=== PATIENT | male | born 1960 | race African-American/Black ===

== ENCOUNTER 2020-07-15 13:02 | Outpatient (REF) | payer OTHER, SELFPAY ==
[2020-07-15 13:50] LABS: MANUAL DIFF FLAG NO
[2020-07-15 13:53] LABS: Basophils Percent Auto 1.1 % (0-2); Eosinophils Absolute Auto 0.7 X10*3/uL (0.0-0.4); Eosinophils Percent Auto 18.9 % (0-4); Hematocrit 44.4 % (42-52); Hemoglobin 13.7 g/dl (14.0-18.0); Imm Gran Abs Auto 0.01 X10*3/uL (0.00-0.03); Imm Gran Pct Auto 0.3 % (0.0-0.4); Lymphocytes Absolute Auto 1.3 X10*3/uL (1.2-4.9); Lymphocytes Percent Auto 36.2 % (20-40); Mean Corpuscular HGB Conc 30.9 g/dl (31.0-36.0); Mean Corpuscular Hemoglobin 25.8 pg (27.0-33.0); Mean Corpuscular Volume 83.6 fL (80-98); Mean Platelet Volume 10.5 fL (9.4-12.4); Monocytes Absolute Auto 0.3 X10*3/uL (0.1-1.2); Monocytes Percent Auto 6.8 % (2-11); Neutrophils Absolute Auto 1.4 X10*3/uL (2.0-8.3); Neutrophils Percent Auto 36.7 % (45-73); Platelet Count 250 X10*3/uL (160-400); Red Blood Count 5.31 X10*6/uL (4.60-5.80); White Blood Count 3.7 X10*3/uL (4.8-10.8)
[2020-07-15 14:16] LABS: Alanine Aminotransferase 14 U/L (0-40); Albumin Level 4.5 g/dL (3.5-5.0); Alkaline Phosphatase 108 U/L (39-117); Anion Gap 13 (12-20); Aspartate Amino Transferase 19 U/L (5-37); Bilirubin Total 0.6 mg/dL (0.0-1.0); Blood Urea Nitrogen 8 mg/dL (9-16); Calcium 9.3 mg/dL (8.4-10.2); Carbon Dioxide 28 mmol/L (22-29); Chloride 106 mmol/L (96-108); Cholesterol 188 mg/dL; Estimated Glomerular Filt Rate > 60; Glucose Fasting 92 mg/dL (60-99); HDL Cholesterol 52 mg/dL; Iron 123 mcg/dL (45-160); LDL Cholesterol Calculated 122 mg/dl; Percent Iron Saturation 34 % (15-50); Potassium 4.3 mmol/L (3.3-5.1); Sodium 143 mmol/L (135-145); Total Iron Binding Capacity 360 mcg/dL (228-428); Total Protein 7.5 g/dL (6.5-8.0); Triglycerides 73 mg/dL; Unsaturated Iron Binding 237 ug/dL
[2020-07-15 14:39] LABS: PSA,Total (Free>4and<10) 4.03 ng/mL (0.00-4.00); Vitamin D 25-OH Total 11.2 ng/mL (>30)
[2020-07-15 14:54] LABS: Ferritin 114 ng/mL (20-250)
[2020-07-16 11:32] LABS: Free Prostate Spec Ag 0.5 ng/mL; Percent Free Prostate Spec Ag 15 % (calc) (>25); Prostate Specific Ag Total 3.3 ng/mL (< OR = 4.0)
== END 2020-07-15 13:03 | disposition home or self-care (01) ==
LOC: HO.HMGCLDS 13:02
PROVIDERS: PCP Internal Medicine; Visit Provider Internal Medicine
DX: Z00.01 Encounter for general adult medical examination with abnormal findings (principal); Z12.5 Encounter for screening for malignant neoplasm of prostate; D64.9 Anemia, unspecified; E55.9 Vitamin D deficiency, unspecified; E78.5 Hyperlipidemia, unspecified; I10 Essential (primary) hypertension
CPT/HCPCS: 36415; 80053; 80061; 82306; 82728; 83540; 84153; 84154; 85025

== ENCOUNTER → 2020-08-12 14:02 | Outpatient (BNVA) | payer OTHER, SELFPAY | PROVIDERS: PCP Internal Medicine; Visit Provider Urology ==

== ENCOUNTER 2021-03-04 12:19 | Outpatient (REF) | payer OTHER, SELFPAY ==
[2021-03-04 14:06] LABS: MANUAL DIFF FLAG NO
[2021-03-04 14:10] LABS: Basophils Percent Auto 0.9 % (0-2); Eosinophils Absolute Auto 0.7 X10*3/uL (0.0-0.4); Hematocrit 41.6 % (42.0-52.0); Hemoglobin 13.1 g/dl (14.0-18.0); Lymphocytes Absolute Auto 1.2 X10*3/uL (1.2-4.9); Lymphocytes Percent Auto 34.6 % (20-40); Mean Corpuscular HGB Conc 31.5 g/dl (31.0-36.0); Mean Corpuscular Hemoglobin 26.1 pg (27.0-33.0); Mean Corpuscular Volume 82.9 fL (80.0-98.0); Mean Platelet Volume 10.9 fL (9.4-12.4); Monocytes Absolute Auto 0.3 X10*3/uL (0.1-1.2); Monocytes Percent Auto 8.1 % (2-11); Neutrophils Absolute Auto 1.3 x10*3/uL (2.0-8.3); Neutrophils Percent Auto 37.4 % (45-73); Platelet Count 246 X10*3/uL (160-400); Red Blood Count 5.02 X10*6/uL (4.60-5.80); Red Cell Distribution Width 13.3 % (11.0-16.0); White Blood Count 3.5 X10*3/uL (4.8-10.8)
[2021-03-04 14:37] LABS: Alanine Aminotransferase 16 U/L (0-40); Anion Gap 10 (12-20); Aspartate Amino Transferase 21 U/L (5-37); Blood Urea Nitrogen 11 mg/dL (9-16); Calcium 9.5 mg/dL (8.4-10.2); Carbon Dioxide 30 mmol/L (22-29); Chloride 106 mmol/L (96-108); Cholesterol 207 mg/dL; Estimated Glomerular Filt Rate > 60; Glucose Fasting 88 mg/dL (60-99); HDL Cholesterol 45 mg/dL; Iron 155 mcg/dL (45-160); LDL Cholesterol Calculated 144 mg/dl; Percent Iron Saturation 45 % (15-50); Potassium 4.1 mmol/L (3.3-5.1); Sodium 142 mmol/L (135-145); Total Iron Binding Capacity 342 mcg/dL (228-428); Triglycerides 92 mg/dL; Unsaturated Iron Binding 187 ug/dL
[2021-03-04 14:58] LABS: PSA,Total (Free>4and<10) 3.24 ng/mL (0.00-4.00)
== END 2021-03-04 12:20 | disposition home or self-care (01) ==
LOC: HO.HMGCLDS 12:19
PROVIDERS: Absent Provider Urology; PCP Internal Medicine; Visit Provider Internal Medicine
DX: Z12.5 Encounter for screening for malignant neoplasm of prostate (principal); N13.8 Other obstructive and reflux uropathy; N40.1 Benign prostatic hyperplasia with lower urinary tract symptoms; D64.9 Anemia, unspecified; E55.9 Vitamin D deficiency, unspecified; E78.5 Hyperlipidemia, unspecified; I10 Essential (primary) hypertension
CPT/HCPCS: 36415; 80048; 80061; 83540; 84153; 84450; 84460; 85025

== ENCOUNTER 2022-05-12 10:40 | Outpatient (REF) | payer OTHER, SELFPAY ==
[2022-05-12 14:03] LABS: Eosinophils Absolute Auto 0.2 X10*3/uL (0.0-0.4); Eosinophils Percent Auto 8.1 % (0-4); Hematocrit 45.3 % (42.0-52.0); Hemoglobin 14.6 g/dl (14.0-18.0); Imm Gran Abs Auto 0.01 X10*3/uL (0.00-0.03); Imm Gran Pct Auto 0.3 % (0.0-0.4); Lymphocytes Absolute Auto 1.6 X10*3/uL (1.2-4.9); Lymphocytes Percent Auto 52.7 % (20-40); MANUAL DIFF FLAG SCAN; Mean Corpuscular HGB Conc 32.2 g/dl (31.0-36.0); Mean Corpuscular Hemoglobin 26.6 pg (27.0-33.0); Mean Corpuscular Volume 82.7 fL (80.0-98.0); Mean Platelet Volume 11.5 fL (9.4-12.4); Monocytes Absolute Auto 0.2 X10*3/uL (0.1-1.2); Monocytes Percent Auto 7.7 % (2-11); Neutrophils Absolute Auto 0.9 x10*3/uL (2.0-8.3); Neutrophils Percent Auto 30.2 % (45-73); Platelet Count 233 X10*3/uL (160-400); Red Blood Count 5.48 X10*6/uL (4.60-5.80); Red Cell Distribution Width 12.6 % (11.0-16.0); SCAN SMEAR FLAG 1
[2022-05-12 14:30] LABS: SLIDE REVIEW VERIFIED
[2022-05-12 14:39] LABS: Cholesterol 211 mg/dL; Glucose Fasting 87 mg/dL (60-99); HDL Cholesterol 48 mg/dL; LDL Cholesterol Calculated 149 mg/dl; Triglycerides 72 mg/dL
[2022-05-12 14:46] LABS: PSA,Total (Free>4and<10) 4.36 ng/mL (0.00-4.00); Vitamin D 25-OH Total 26.2 ng/mL (>30)
[2022-05-17 11:03] LABS: Free Prostate Spec Ag 0.6 ng/mL; Percent Free Prostate Spec Ag 15 % (calc) (>25); Prostate Specific Ag Total 3.9 ng/mL (< OR = 4.0)
== END 2022-05-12 10:41 | disposition home or self-care (01) ==
LOC: HO.HMGCLDS 10:40
PROVIDERS: PCP Internal Medicine; Visit Provider Internal Medicine
DX: Z00.01 Encounter for general adult medical examination with abnormal findings (principal); D64.9 Anemia, unspecified; E55.9 Vitamin D deficiency, unspecified; E78.5 Hyperlipidemia, unspecified; H40.9 Unspecified glaucoma; Z01.84 Encounter for antibody response examination
CPT/HCPCS: 36415; 80061; 82306; 82947; 84153; 84154; 85025; 86787

== ENCOUNTER 2022-11-09 11:53 | Outpatient (REF) | payer OTHER, SELFPAY ==
[2022-11-09 14:19] LABS: Alanine Aminotransferase 8 U/L (0-40); Aspartate Amino Transferase 13 U/L (5-37); Cholesterol 221 mg/dL; HDL Cholesterol 48 mg/dL; LDL Cholesterol Calculated 153 mg/dl; Triglycerides 100 mg/dL
[2022-11-09 14:35] LABS: Vitamin D 25-OH Total 40.3 ng/mL (>30)
== END 2022-11-09 11:54 | disposition home or self-care (01) ==
LOC: HO.HMGCLDS 11:53
PROVIDERS: PCP Internal Medicine; Visit Provider Internal Medicine
DX: I10 Essential (primary) hypertension (principal); E78.5 Hyperlipidemia, unspecified; E55.9 Vitamin D deficiency, unspecified
CPT/HCPCS: 36415; 80061; 82306; 84450; 84460

== ENCOUNTER 2022-11-10 10:04 | Outpatient (AMB) | payer OTHER, SELFPAY ==
--- NOTE | 2022-11-10 10:21 | A.OFFPC_ITS ---
Vital Signs 11/10/22 10:22 Height 5 ft 5 in Weight 135 lb BMI 22.5 BP 128/80 Blood Pressure Location Lt brachial Position Sitting Pulse 52 Pulse Source Pulse Oximeter Pulse Oximetry (%) 98 Oxygen Delivery Method Room Air Intake Visit Reasons: 6 Month follow up after labs Intake Note: Pt is here today for his 6 months f/u labs Allergies No Known Allergies [No Known Allergies*] Allergy (Verified 11/10/22 10:25) Medication List - Last Reconciled 11/10/22 by Solange Staton MD amlodipine 10 mg PO DAILY cholecalciferol (vitamin D3) 1,250 mcg PO QWEEK 3 months latanoprost 0.005% 1 drp ophthalmic (eye) DAILY timolol maleate 0.5% 1 drp ophthalmic (eye) BID Tobacco use date assessed: 11/10/22 Dental Screening Dental Screen Date: 11/10/22 Did you have a dental visit in the last 12 months?: Yes Did you have a dental problem in the last 6 months where you did not have access to dental care?: No Was dental information given to patient?: Patient has dentist HPI 6 Month follow up after labs HPI Details 63-year-old male with history of anemia, resolved, has glaucoma, hypertension , dyslipidemia, here today for six-month follow-up has, no complaints at present time. He had recent fasting labs showed higher LDL cholesterol as compared to last check, Laboratory Tests 05/12/22 11/09/22 10:46 11:57 WBC 3.0 L Hgb 14.6 Hct 45.3 MCV 82.7 MCH 26.6 L RDW 12.6 Plt Count 233 AST 13 ALT 8 Triglycerides 100 Cholesterol 221 LDL Cholesterol, C alc 153 HDL Cholesterol 48 25-OH Vitamin D To shannan 40.3 PFSH Medical History (Updated 11/10/22 @ 10:48 by Solange Staton MD) Anemia Dyslipidemia Elevated PSA Essential hypertension Glaucoma History of hemorrhoids Rash and nonspecific skin eruption Vitamin D deficiency Surgical History (Updated 11/10/22 @ 10:31 by Solange Staton MD) History of colonoscopy History of hemorrhoidectomy Family History Father No problems noted. Mother Unknown family medical history Brother No problems noted. Sister No problems noted. Sister No problems noted. Son No problems noted. Son No problems noted. Daughter No problems noted. Daughter No problems noted. Daughter No problems noted. Social History Housing: House Alcohol intake: current Patient Tobacco Use Status: Never used Tobacco e-Cigarette/Vaping Use: Never Used service: No Current occupational status: employed Cognitive needs: No Hearing needs: No Vision needs: No Questionnaire Thrive Questionnaire Date Thrive assessed: 05/12/22 DONITA-7 AMB Questionnaire DONITA-7 Date DONITA - 7 assessed: 05/12/22 Source: Developed by Drs. Hans Anderson, Yudith Maurice, Lamin Young and colleagues, with an educational jaelyn from [employer]. Review of Systems Const Denies body aches, Denies fatigue, Denies fever(s), Denies headache(s) and Denies weakness Eyes Details: Sees Dr. Gilbert at [facility] for treatment of glaucoma ENT Denies dizziness, Denies headache(s) and Denies nasal congestion Card Denies chest pain, Denies lightheadedness, Denies palpitations and Denies dyspnea Resp Denies chest congestion, Denies cough, Denies dyspnea and Denies wheezing GI Denies abdominal pain, Denies change in bowel habits and Denies heartburn Denies dysuria, Denies urinary frequency and Denies urinary urgency Musc Reports no additional complaints Skin/Breast Denies lesions and Denies rash Neuro Denies dizziness, Denies headache(s) and Denies weakness Endo Denies fatigue and Denies palpitations Kodak/Lymph Denies easy bruising Aller/Immun Denies wheezing Physical exam (Primary Care) BMI result Body Mass Index 22.5 Tobacco/Smoking Status: Tobacco use Status Tobacco use date assessed 05/12/22 11/10/22 10:21 Patient Tobacco Use Status Never used Tobacco 11/10/22 10:21 e-Cigarette/Vaping Use Never Used 11/10/22 10:21 Thrive Assessment: Date of Thrive Assessment Date Thrive assessed 05/12/22 11/10/22 10:21 Const Other: Alert oriented x3, no acute distress ambulatory normal gait Orientation/consciousness: patient oriented x3 HENMT Head: Yes normocephalic, Yes scalp lesion (Slightly raised lesion on left front al area of scalp) and No scalp tenderness Face and sinus: Yes face symmetric Mouth: Normal oral and palatal mucosa present, oropharynx normal and moist mucous membranes Eyes General: appearance normal, both eyes and all related structures Neck Other: Supple, no lymphadenopathy, thyroid gland nonpalpable Chest Chest palpation & inspection: normal inspection of the chest Resp Effort & Inspection: normal respiratory effort and able to speak in complete sentences Auscultation: clear to auscultation bilaterally Cardio Other: S1-S2 present regular rate and rhythm GI Inspection: Yes normal to inspection Palpation (GI): Soft to palpation, nontender, no guarding and no masses Back/Spine/Pelvis Back: No back tenderness Skin Other: Raised round lesion on left forehead, fluctuant, nontender Neuro General: patient oriented x3, gait normal, moves all extremities, no focal motor deficits and CN's II-XI intact bilaterally Gait exam (Neuro): Normal gait present Extrem General: Yes normal to inspection, Yes full ROM, Yes no joint enlargement, Yes no pedal edema and Yes normal gait Right upper extremity: normal to inspection, full ROM and shoulder/upper arm Details: normal to inspection; no tenderness, no ecchymosis and no unusual warmth Assessment and Plan Assessment & Plan (1) Skin lesion of scalp: Code(s): L98.9 - Disorder of the skin and subcutaneous tissue, unspecified Plan: Ordered surgery consult (2) Upper arm pain: Code(s): M79.629 - Pain in unspecified upper arm Plan: Advised to massaged affected area with [id number] absorbent nj or Aspercreme. Did not any improvement with taking meloxicam (3) Essential hypertension: Code(s): I10 - Essential (primary) hypertension Plan: Blood pressure at goal of less than 130/80. Continue with amlodipine 10 mg daily. Reinforced importance of following a low sodium diet, getting regular exercise, and lowering stress levels. (4) Dyslipidemia: Code(s): E78.5 - Hyperlipidemia, unspecified Plan: Reviewed recent fasting lipid profile with patient with increasing triglycerides and LDL cholesterol levels . Advised to follow a low-cholesterol diet and get regular exercise, at least 30 minutes 3 to 4 times a week. Patient Education guide given for help with lower LDL cholesterol and triglycerides. Advised patient to make healthy food choices, eat more fruits, vegetables, whole grains, wild caught fish and low-fat dairy. Limit amount of meat and fried or fatty food products, as well as processed foods and fast foods. Will check lipids again on next physical exam Orders: Referrals General Surgery Referral L98.9 - Disorder of the skin and subcutaneous tissue, unspecified Coding Level of Care Code Est Pt Level 3 (50001) Diagnoses Skin lesion of scalp L98.9 Upper arm pain M79.629 Essential hypertension I10 Dyslipidemia E78.5
[2022-11-10 10:22] VITALS: BP 128/80; PULSE 52; O2SAT 98; BMI 22.5
== END 2022-11-10 11:28 | disposition home or self-care (01) ==
PROVIDERS: Visit Provider Internal Medicine
DX: L98.9 Disorder of the skin and subcutaneous tissue, unspecified (principal); M79.629 Pain in unspecified upper arm; I10 Essential (primary) hypertension; E78.5 Hyperlipidemia, unspecified
CPT/HCPCS: 99213

== ENCOUNTER 2023-01-10 10:46 | Outpatient (REF) | payer OTHER, SELFPAY ==
[2023-01-10 14:07] LABS: Anion Gap 15 (12-20); Blood Urea Nitrogen 11 mg/dL (9-16); Calcium 10.2 mg/dL (8.4-10.2); Carbon Dioxide 28 mmol/L (22-29); Chloride 103 mmol/L (96-108); Estimated Glomerular Filt Rate > 60; Glucose Random 96 mg/dL (60-115); Potassium 4.3 mmol/L (3.3-5.1); Sodium 142 mmol/L (135-145)
[2023-01-11 09:38] LABS: Free Prostate Spec Ag 0.8 ng/mL; Percent Free Prostate Spec Ag 19 % (calc) (>25); Prostate Specific Ag Total 4.3 ng/mL (< OR = 4.0)
== END 2023-01-10 10:47 | disposition home or self-care (01) ==
LOC: HO.HMGCLDS 10:46
PROVIDERS: PCP Internal Medicine; Visit Provider Nurse Practitioner Family
DX: I10 Essential (primary) hypertension (principal); R97.20 Elevated prostate specific antigen [PSA]
CPT/HCPCS: 36415; 80048; 84153; 84154

== ENCOUNTER 2023-01-19 11:39 | Outpatient (AMB) | payer OTHER, SELFPAY ==
--- NOTE | 2023-01-19 11:40 | MHC.OFFVIS ---
Intake Intake Visit Reasons: Elevated PSA- follow up Intake Note: Patient is present for follow up elevated psa/lab (psa 4.57) Urology Medications: none Blood Thinner: none Director [employer] Required: No Accompanied by: Self / Same As Patient Allergies No Known Allergies [No Known Allergies*] Allergy (Verified 01/19/23 20:49) Medication List - Last Reconciled 01/19/23 by SARWAT AlamoP- amlodipine 10 mg PO DAILY cholecalciferol (vitamin D3) 1,250 mcg PO QWEEK 3 months latanoprost 0.005% 1 drp ophthalmic (eye) DAILY timolol maleate 0.5% 1 drp ophthalmic (eye) BID HPI HPI Comments History of Present Illness Details Jani is a very pleasant male ([place]) patient of Dr. Staton. He has a past medical history elevated PSA, glaucoma, hypertension, hemorrhoids, dyslipidemia, vitamin-D deficiency, and anemia. He presents to the office today for follow-up of his elevated PSA. In discussion with the patient today reports to be doing and feeling well. He reports following up with Dr. Pedro approximately 2 years ago for an elevated PSA at which time recommendations were made for trial finasteride however patient reports to never have started this medication. In review of patient's chart it appears PSAs are as follows: 07/23--4.0, 07/23--3.3 % free 15%, 03/24--3.2, 05/27--4.4, 05/27--3.9 % free 15%, 01/24--4.6, 01/24--4.3 % free 19% Discussed at length potential causes for elevated PSA. Discussed PCP T risk calculator 70% chance that biopsy is negative for cancer, 18% chance of low-grade cancer, and 12% chance of high-grade prostate cancer. When asked patient denies any known family history of prostate cancer. He denies any bothersome urinary issues or concerns at this time. He denies urinary urgency, urinary frequency, incontinence, nocturia, hematuria, dysuria, foul smelling urine, changes to urinary stream, flank pain, fever, and or chills. He is happy with his current voiding parameters. Discussed obtaining retroperitoneal ultrasound for further assessment evaluation and redraw of PSA with no sex the night before, no caffeine morning of, and no heavy lifting 1-2 days prior. VEENA;smooth and no suspicious nodules palpated. [facility] Medical History (Updated 01/19/23 @ 12:05 by EDUARDO Alamo) Elevated PSA Glaucoma Rash and nonspecific skin eruption Essential hypertension History of hemorrhoids Dyslipidemia Vitamin D deficiency Anemia Surgical History History of colonoscopy History of hemorrhoidectomy Family History Father No problems noted. Mother Unknown family medical history Brother No problems noted. Sister No problems noted. Sister No problems noted. Son No problems noted. Son No problems noted. Daughter No problems noted. Daughter No problems noted. Daughter No problems noted. Social History Housing: House Alcohol intake: current Patient Tobacco Use Status: Never used Tobacco e-Cigarette/Vaping Use: Never Used service: No Current occupational status: employed Cognitive needs: No Hearing needs: No Vision needs: No Review of Systems Const Reports as per HPI Eyes Reports as per HPI ENT Reports no additional complaints Card Reports as per HPI Resp Reports as per HPI GI Reports no additional complaints Reports as per HPI Musc Reports no additional complaints and Denies muscle weakness Neuro Reports no additional complaints Psych Reports no additional complaints Endo Reports no additional complaints Physical Exam Const General: cooperative, healthy appearing, comfortable, no acute distress, well developed, alert and awake Orientation/consciousness: patient oriented x3 Limitations: no limitations HEENT Head: Yes normal to inspection, Yes normocephalic and Yes atraumatic Ears: hearing grossly normal bilaterally Eyes General: appearance normal, both eyes and all related structures Neck Neck: Yes normal visual inspection and Yes trachea midline Chest Chest palpation & inspection: normal inspection of the chest Resp Effort & Inspection: normal respiratory effort and able to speak in complete sentences Cardio Rate: regular rate GI Inspection: Yes normal to inspection General: Yes no CVA tenderness Back/Spine/Pelvis Back: no CVA tenderness Skin General skin exam: no rashes or lesions noted Neuro General: patient oriented x3 Extrem General: Yes normal to inspection Psych Appearance: grossly normal and well kempt Mental Status: mental status grossly normal Speech and movement: Normal speech and movement present and Clear speech present Affect: normal affect Attitude: cooperative Thought process: Normal thought process present Thought content: Normal thought content present Insight: Fair insight present (Psych) Judgement: Fair judgement present (Psych) Results AMB Urinalysis, Automated UA Leukoctes 15 Janae/uL Last Edit by Mariela Saleh on 01/19/23 11:52 UA Nitrite Negative Last Edit by Mariela Saleh on 01/19/23 11:52 UA Urobilinogen 0.2 mg/dL Last Edit by [employer] on 01/19/23 11:52 UA Protein 30 mg/dL Last Edit by [employer] on 01/19/23 11:52 UA pH 6.0 Last Edit by [employer] on 01/19/23 11:52 UA Blood 0 Stas/uL Last Edit by [employer] on 01/19/23 11:52 UA Specific [place] 1.015 Last Edit by [employer] on 01/19/23 11:52 UA Ketone Negative Last Edit by [employer] on 01/19/23 11:52 UA Bilirubin 1 mg/dL Last Edit by [employer] on 01/19/23 11:52 UA Glucose 0 mg/dL Last Edit by [employer] on 01/19/23 11:52 Results Reviewed Results Reviewed: Laboratory Last Values Urine pH (Auto) 6.0 01/19/23 11:45 Specific [place] (Auto) 1.015 01/19/23 11:45 Urine Protein (Auto) 30 mg/dL 01/19/23 11:45 Glucose (UA)(Auto) 0 mg/dL 01/19/23 11:45 Urine Ketones (Auto) Negative 01/19/23 11:45 Urine Blood (Auto) 0 Stas/uL 01/19/23 11:45 Urine Nitrite (Auto) Negative 01/19/23 11:45 Urine Bilirubin (Auto) 1 mg/dL 01/19/23 11:45 Urine Urobilinogen (Auto) 0.2 mg/dL 01/19/23 11:45 Leukocyte Esterase (Auto) 15 Janae/uL 01/19/23 11:45 Assessment & Plan Assessment & Plan (1) Elevated PSA: Comment: Followed by Dr. Pedro Code(s): R97.20 - Elevated prostate specific antigen [PSA] Plan In office urinalysis results reviewed with the patient today; as noted above. PSA results reviewed with the patient today as noted above. Patient denies any bothersome urinary issues or concerns at this time. Discussed redraw of PSA; with no sex the night before, no caffeine morning of, and no heavy lifting 1-2 days prior to lab draw. Discussed obtaining retroperitoneal ultrasound for further assessment evaluation. Discussed at length potential causes for elevated PSA. PC PT risk calculator reviewed with the patient today. Patient reports to be happy with current voiding parameters. VEENA performed; smooth and no suspicious nodules palpated. Follow-up in 4-6 weeks with labs and imaging to be completed prior; or sooner with any issues, concerns, and or questions. Orders: Orders PSA,Total (Free>4and<10) Today R97.20 - Elevated prostate specific antigen [PSA] AMB Urinalysis Automated Today Z13.9 - Encounter for screening, unspecified US retroperitoneal comp Today R39.9 - Unspecified symptoms and signs involving the genitourinary system Patient Instructions: The patient had an opportunity to ask questions regarding the treatment plan. All questions were answered. Physical exam, labs, and imaging were discussed and reviewed in detail. As well as risks, benefits, and discussion of treatment choices. No major barriers to understanding were identified. The patient expressed understanding and agreement with the above treatment plan. The patient was made aware they should contact our office by phone for worsening of their current condition, the appearance of new symptoms, or with any questions or concerns. Compliance is encouraged with any medications and follow up testing that is ordered. It is a privilege to be allowed the opportunity to participate in? your urological care.? Again, if you have any questions or concerns If you have any questions or concerns please do not hesitate to contact me. The office is [phone]. This note is constructed using voice recognition software. While every effort has been made to ensure accuracy waiver analyst errors may have been included. Yours sincerely, EDUARDO Alamo Coding Level of Care Code Est Pt Level 3 (47204) Diagnoses Elevated PSA R97.20
== END 2023-01-19 12:12 | disposition home or self-care (01) ==
PROVIDERS: PCP Internal Medicine; Visit Provider Nurse Practitioner Family
DX: R97.20 Elevated prostate specific antigen [PSA] (principal)
CPT/HCPCS: 99213

== ENCOUNTER 2023-01-19 11:39 | Outpatient (REF) | payer OTHER, SELFPAY ==
[2023-01-19 16:58] LABS: PSA,Total (Free>4and<10) 4.45 ng/mL (0.00-4.00)
[2023-01-21 10:34] LABS: Percent Free Prostate Spec Ag 25 % (calc) (>25)
== END 2023-01-19 11:40 | disposition home or self-care (01) ==
LOC: HO.HMGCLDS 11:39
PROVIDERS: PCP Internal Medicine; Visit Provider Nurse Practitioner Family
DX: R97.20 Elevated prostate specific antigen [PSA] (principal); R39.9 Unspecified symptoms and signs involving the genitourinary system; Z79.899 Other long term (current) drug therapy
CPT/HCPCS: 36415; 81003; 84153; 84154; 99212

== ENCOUNTER 2023-02-21 09:07 | Outpatient (REF) | payer OTHER, SELFPAY ==
--- NOTE | ~2023-02-21 | US_ITS ---
EXAMINATION: US RETROPERITONEAL COMPLETE (RENAL) CLINICAL INFORMATION: Unspecified symptoms and signs involving the genitourinary system. Elevated PSA. COMPARISON: None available. TECHNIQUE: Real-time imaging of the kidneys and bladder. Limited visualization due to bowel gas. FINDINGS: RIGHT KIDNEY: 10.4 x 3.8 x 4.9 cm (SAG x AP x TRV No hydronephrosis. No renal calculi. Renal cortical thickness is normal. Limited visualization. LEFT KIDNEY: 10.2 x 5.5 x 4.0 cm (SAG x AP x TRV). No hydronephrosis. No renal calculi. Renal cortical thickness is normal. Limited visualization. BLADDER: Well-distended. Mild diffuse trabeculation and thickening of the bladder wall. Bilateral ureteral jets are demonstrated. Prevoid bladder volume is 195 mL. Postvoid bladder volume is 24 mL. ADDITIONAL FINDINGS: Enlarged prostate with volume 30 mL. Echogenic foci within the prostate are characteristic of calcifications. Lobulated prostate contour. US/US retroperitoneal comp IMPRESSION: 1. Mild diffuse trabeculation and thickening of the bladder wall. Enlarged prostate with volume 30 mL. Echogenic foci within the prostate are characteristic of calcifications. Lobulated prostate contour. 2. No hydronephrosis. No renal calculi.
== END 2023-02-21 09:08 | disposition home or self-care (01) ==
LOC: HO.HMGCX 09:07
PROVIDERS: PCP Internal Medicine; Visit Provider Nurse Practitioner Family
DX: R39.9 Unspecified symptoms and signs involving the genitourinary system (principal)
CPT/HCPCS: 76770

== ENCOUNTER 2023-03-01 08:54 | Outpatient (AMB) | payer OTHER, SELFPAY ==
--- NOTE | 2023-03-01 08:57 | A.OFFVIS_ITS ---
Intake Intake Visit Reasons: 4w/US/PSA Intake Note: Patient is present for follow up elevated psa/lab/ultrasound(imaging 02/21/23) (psa 4.0) Urology Medications: none Blood Thinner: none Thread Twister Required: No Accompanied by: Self / Same As Patient Allergies No Known Allergies [No Known Allergies*] Allergy (Verified 03/01/23 09:00) HPI HPI Comments History of Present Illness Details Jani is a very pleasant 63 year old male ([place]) patient of Dr. Staton. He has a past medical history elevated PSA, glaucoma, hypertension, hemorrhoids, dyslipidemia, vitamin-D deficiency, and anemia. He presents to the office today for follow-up of his elevated PSA. Of note, patient was seen approximately 1 month ago at which time a retroperitoneal ultrasound and redraw of PSA were ordered. These results reviewed with the patient today. In discussion with the patient today reports to be doing and feeling well. Recent PSA results reviewed with the patient today. Trends are as follows: 07/23--4.0, 07/23--3.3 % free 15%, 03/24-- 3.2, 05/27--4.4, 05/27--3.9 % free 15%, 01/24--4.6, 01/24--4.3 % free 19%, 01/24---4.5 25% Discussed at length potential causes for elevated PSA. Discussed PCP T risk calculator 78% chance that biopsy is negative for cancer, 13% chance of low- grade cancer, and 9% chance of high-grade prostate cancer. When asked patient denies any known family history of prostate cancer. He denies any bothersome urinary issues or concerns at this time. He denies urinary urgency, urinary frequency, incontinence, nocturia, hematuria, dysuria, foul smelling urine, changes to urinary stream, flank pain, fever, and or chills. He is happy with his current voiding parameters. Recent retroperitoneal ultrasound results reviewed with the patient today. Bilateral kidneys with no hydronephrosis or calculi noted. The bladder is well distended. Mild diffuse trabeculation and thickening of the bladder wall. Bilateral ureteral jets are demonstrated. Pre void bladder volume is approximately 200 mL. Postvoid bladder volume is approximately 25 mL. Prostate volume is approximately 30 mL. Echogenic foci within the prostate are characteristic of calcifications. Lobulated prostate contour. Discussed surveillance monitoring verses prostate MRI versus initiation of finasteride verses prostate biopsy. Discussed these interventions at length. Discussed risks and benefits of these interventions at length. VEENA;smooth and no suspicious nodules palpated. [facility] Medical History Elevated PSA Glaucoma Rash and nonspecific skin eruption Essential hypertension History of hemorrhoids Dyslipidemia Vitamin D deficiency Anemia Surgical History History of colonoscopy History of hemorrhoidectomy Family History Father No problems noted. Mother Unknown family medical history Brother No problems noted. Sister No problems noted. Sister No problems noted. Son No problems noted. Son No problems noted. Daughter No problems noted. Daughter No problems noted. Daughter No problems noted. Social History Housing: House Alcohol intake: current Patient Tobacco Use Status: Never used Tobacco e-Cigarette/Vaping Use: Never Used service: No Current occupational status: employed Cognitive needs: No Hearing needs: No Vision needs: No Review of Systems Const Reports as per HPI Eyes Reports as per HPI ENT Reports no additional complaints Card Reports as per HPI Resp Reports as per HPI GI Reports no additional complaints Reports as per HPI Musc Reports no additional complaints and Denies muscle weakness Neuro Reports no additional complaints Psych Reports no additional complaints Endo Reports no additional complaints Physical Exam Const General: cooperative, healthy appearing, comfortable, no acute distress, well developed, alert and awake Orientation/consciousness: patient oriented x3 Limitations: no limitations HEENT Head: Yes normal to inspection, Yes normocephalic and Yes atraumatic Ears: hearing grossly normal bilaterally Eyes General: appearance normal, both eyes and all related structures Neck Neck: Yes normal visual inspection and Yes trachea midline Chest Chest palpation & inspection: normal inspection of the chest Resp Effort & Inspection: normal respiratory effort and able to speak in complete sentences Cardio Rate: regular rate GI Inspection: Yes normal to inspection General: Yes no CVA tenderness Back/Spine/Pelvis Back: no CVA tenderness Skin General skin exam: no rashes or lesions noted Neuro General: patient oriented x3 Extrem General: Yes normal to inspection Psych Appearance: grossly normal and well kempt Mental Status: mental status grossly normal Speech and movement: Normal speech and movement present and Clear speech present Affect: normal affect Attitude: cooperative Thought process: Normal thought process present Thought content: Normal thought content present Insight: Fair insight present (Psych) Judgement: Fair judgement present (Psych) Results AMB Urinalysis, Automated UA Leukoctes 0 Janae/uL Last Edit by Flo Waterraul Saleh on 03/01/23 09:08 UA Nitrite Negative Last Edit by Flo Waterraul [employer] on 03/01/23 09:08 UA Urobilinogen 0.2 mg/dL Last Edit by Brian [employer] on 03/01/23 09:08 UA Protein 15 mg/dL Last Edit by Brian [employer] on 03/01/23 09:08 UA pH 6.0 Last Edit by Flo Waterraul [employer] on 03/01/23 09:08 UA Blood 0 Stas/uL Last Edit by Brian [employer] on 03/01/23 09:08 UA Specific [place] 1.015 Last Edit by Brian [employer] on 03/01/23 09:08 UA Ketone Negative Last Edit by Brian [employer] on 03/01/23 09:08 UA Bilirubin 0 mg/dL Last Edit by Brian [employer] on 03/01/23 09:08 UA Glucose 0 mg/dL Last Edit by Flo Waterraul [employer] on 03/01/23 09:08 Results Reviewed Results Reviewed: Laboratory Last Values Urine pH (Auto) 6.0 03/01/23 09:01 Specific [place] (Auto) 1.015 03/01/23 09:01 Urine Protein (Auto) 15 mg/dL 03/01/23 09:01 Glucose (UA)(Auto) 0 mg/dL 03/01/23 09:01 Urine Ketones (Auto) Negative 03/01/23 09:01 Urine Blood (Auto) 0 Stas/uL 03/01/23 09:01 Urine Nitrite (Auto) Negative 03/01/23 09:01 Urine Bilirubin (Auto) 0 mg/dL 03/01/23 09:01 Urine Urobilinogen (Auto) 0.2 mg/dL 03/01/23 09:01 Leukocyte Esterase (Auto) 0 Janae/uL 03/01/23 09:01 Date of Service: 02/21/23 EXAMINATION: US RETROPERITONEAL COMPLETE (RENAL) FINDINGS: RIGHT KIDNEY: 10.4 x 3.8 x 4.9 cm (SAG x AP x TRV No hydronephrosis. No renal calculi. Renal cortical thickness is normal. Limited visualization. LEFT KIDNEY: 10.2 x 5.5 x 4.0 cm (SAG x AP x TRV). No hydronephrosis. No renal calculi. Renal cortical thickness is normal. Limited visualization. BLADDER: Well-distended. Mild diffuse trabeculation and thickening of the bladder wall. Bilateral ureteral jets are demonstrated. Prevoid bladder volume is 195 mL. Postvoid bladder volume is 24 mL. ADDITIONAL FINDINGS: Enlarged prostate with volume 30 mL. Echogenic foci within the prostate are characteristic of calcifications. Lobulated prostate contour. IMPRESSION: 1. Mild diffuse trabeculation and thickening of the bladder wall. Enlarged prostate with volume 30 mL. Echogenic foci within the prostate are characteristic of calcifications. Lobulated prostate contour. 2. No hydronephrosis. No renal calculi. Assessment & Plan Assessment & Plan (1) Elevated PSA: Comment: Followed by Dr. Pedro Code(s): R97.20 - Elevated prostate specific antigen [PSA] (2) Bladder trabeculation: Code(s): N32.89 - Other specified disorders of bladder Plan: Plan Risks and benefits regarding trans rectal ultrasound with prostate biopsy were discussed.? Options of continued surveillance, no treatment and biopsy were offered. The risks include but are not limited to, urinary tract infection, sepsis, difficulty urinating, bleeding into the rectum or bladder that requires intervention and transfusion,and failure to diagnose prostate cancer. The patient understands the options and the risks involved. They wish to proceed. Printed information was provided to ensure he remains off anticoagulation for the appropriate length of time. He may require cardiology or PCP clearance.? An antibiotic will be administered prior to, and following the procedure Plan In office urinalysis results reviewed with the patient today; as noted above. Recent retroperitoneal ultrasound results reviewed with the patient today; as noted above. Recent PSA results reviewed with the patient; as noted above. Discussed at length potential causes of elevated PSA. Discussed surveillance monitoring verses MRI of the prostate verses trial of finasteride verses prostate biopsy; these interventions were discussed at length as well as risks and benefits of these interventions. Will schedule for prostate biopsy with Dr. Pedro as discussed Discussed antibiotic therapy day before, day of, and day after prostate biopsy procedure. Patient denies any bothersome urinary issues at this time. He reports to be happy with current voiding parameters. Follow-up status post prostate biopsy per Dr. Pedro's orders; or sooner with any issues, concerns, and or questions. Orders: Orders AMB Urinalysis Automated Today Z13.9 - Encounter for screening, unspecified Medications: New levofloxacin take 1 tablet day before procedure, 1 tablet day of procedure and 1 tablet day after procedure 500 mg PO daily 3 tabs 0RF 3 days Patient Instructions: The patient had an opportunity to ask questions regarding the treatment plan. All questions were answered. Physical exam, labs, and imaging were discussed and reviewed in detail. As well as risks, benefits, and discussion of treatment choices. No major barriers to understanding were identified. The patient expressed understanding and agreement with the above treatment plan. The patient was made aware they should contact our office by phone for worsening of their current condition, the appearance of new symptoms, or with any questions or concerns. Compliance is encouraged with any medications and follow up testing that is ordered. It is a privilege to be allowed the opportunity to participate in? your urological care.? Again, if you have any questions or concerns If you have any questions or concerns please do not hesitate to contact me. The office is [phone]. This note is constructed using voice recognition software. While every effort has been made to ensure accuracy surgery nurse errors may have been included. Yours sincerely, EDUARDO Alamo Coding Level of Care Code Est Pt Level 4 (78846) Diagnoses Elevated PSA R97.20 Bladder trabeculation N32.89
== END 2023-03-01 09:42 | disposition home or self-care (01) ==
PROVIDERS: PCP Internal Medicine; Visit Provider Nurse Practitioner Family
DX: R97.20 Elevated prostate specific antigen [PSA] (principal); N32.89 Other specified disorders of bladder
CPT/HCPCS: 99214

== ENCOUNTER → 2023-03-01 08:54 | Outpatient (BNVA) | payer OTHER, SELFPAY | PROVIDERS: PCP Internal Medicine; Visit Provider Nurse Practitioner Family | DX: R97.20 Elevated prostate specific antigen [PSA] (principal); N32.89 Other specified disorders of bladder | CPT/HCPCS: 81003; 99212 ==

== ENCOUNTER 2023-06-07 | Outpatient (REF) | payer OTHER, SELFPAY ==
[2023-06-07 12:18] VITALS: BP 129/71; PULSE 56; RESP 16; TEMP 37.3; O2SAT 99; BMI 23.1
--- NOTE | 2023-06-07 13:10 | W.PM.OPN ---
Operative Note Operative Note Date of Service: 06/07/23 Narrative: Preoperative diagnosis: Elevated PSA Postoperative diagnosis: Elevated PSA 4.5 Procedure: 1. transrectal ultrasound measurement of prostate 2. transrectal ultrasound-guided pudendal nerve block 3. transrectal ultrasound-guided prostate biopsy 12 core Surgeon: Dr. Kamran Pedro Anesthetic: Local Indications for procedure: Elevated PSA Procedure: After informed consent was verified, the patient was brought into the procedure area and lay left-hand side down on the table. Patient identity confirmed. Perioperative antibiotics confirmed. Safety pause time out performed. VEENA performed to dilate rectal sphincter Iodine 10cc with Gel was placed per rectum Ultrasound probe was placed per rectum The prostate was measured in 3 dimensions Total volume equals 35 gm No cystic structures were noted No calcifications were noted at the surgical margin The prostate was otherwise homogeneous in nature An ultrasound-guided pudendal nerve block was performed using 10 cc of 1% lidocaine. 8 cc was placed at the base and 2 cc of the apex. A 12 core biopsy was performed with 6 cores each side. Two cores were taken at the apex, mid and base. Cores were spaced between lateral and medial. He tolerated the procedure well. Was able to ambulate to bathroom after 5 minutes. Printed instructions regarding antibiotic use and common side effects such as low-grade temperature, potential infection and bleeding were given Pathology: 12 core prostate biopsy.
== END 2023-06-07 00:01 | disposition home or self-care (01) ==
LOC: HO.MS
PROVIDERS: PCP Internal Medicine; Visit Provider Urology
PROC: (CPT 55700; principal; 2023-06-07 12:30)
DX: C61 Malignant neoplasm of prostate (principal); R97.20 Elevated prostate specific antigen [PSA]
CPT/HCPCS: 55700; 76942; 88305

== ENCOUNTER → 2023-06-07 12:30 | Outpatient (BNV) | payer OTHER, SELFPAY | PROVIDERS: PCP Internal Medicine; Visit Provider Urology | DX: R97.20 Elevated prostate specific antigen [PSA] (principal) | CPT/HCPCS: 55700; 76942 ==

== ENCOUNTER 2023-07-01 08:09 | Outpatient (AMB) | payer OTHER, SELFPAY ==
--- NOTE | 2023-07-01 08:10 | MHC.OFFVIS ---
Intake Intake Visit Reasons: Prostate bx results Intake Note: Patient presents today for a telehealth follow up on Prostate Bx. rersults Meds- None Allergies to Antibiotic- No Known Allergies Blood Thinner- None Artificial Stone Applicator Required: No Allergies No Known Allergies [No Known Allergies*] Allergy (Verified 07/01/23 08:11) HPI HPI Comments History of Present Illness Details Jani is a very pleasant [place] male. He is a patient of Dr. Staton. He is seen for the following urologic conditions - prostate cancer Telemedicine Evaluation 15 min Consultation [employer] Video attempted Follow-up from prostate biopsy Had been managed for BPH with slowly elevating PSA over past 2 years Discussed results Grade group 1 low-grade stage I prostate cancer Plan prostate MRI Will discuss options Prostate cancer, Gl 3+3, stage I, Grade 1 disease PSA 01/24 4.5 25% on finasteride Prostate Biopsy - 06/25 Size 40gm T1c Histologic type: Acinar adenocarcinoma [place] score: 3+3=6 Grade group: 1 Tumor quantitation: Number cores positive: 6 Total number of cores: 12 % of tissue involved: LBL 50%, LML 10%, RBL 10%, RMM 50%, RAL 80%, NITESH 70% Periprostatic fat inv.: Not identified Seminal vesicle inv.: Not identified Perineural inv.: Present LVI: Not identified VEENA normal PFSH Medical History Elevated PSA Glaucoma Rash and nonspecific skin eruption Essential hypertension History of hemorrhoids Dyslipidemia Vitamin D deficiency Anemia Surgical History History of colonoscopy History of hemorrhoidectomy Family History Father No problems noted. Mother Unknown family medical history Brother No problems noted. Sister No problems noted. Sister No problems noted. Son No problems noted. Son No problems noted. Daughter No problems noted. Daughter No problems noted. Daughter No problems noted. Social History Housing: House Alcohol intake: current Patient Tobacco Use Status: Never used Tobacco e-Cigarette/Vaping Use: Never Used service: No Current occupational status: employed Cognitive needs: No Hearing needs: No Vision needs: No Review of Systems Const All systems reviewed & are unremarkable except as noted in HPI and below Reports no additional complaints Resp Reports no additional complaints GI Reports no additional complaints Reports as per HPI Musc Reports no additional complaints Physical Exam Telemedicine evaluation Appropriate responses Regular breathing rate and rhythm HEENT Head: Yes normal to inspection Ears: hearing grossly normal bilaterally Eyes General: appearance normal, both eyes and all related structures Neck Neck: Yes normal visual inspection Chest Chest palpation & inspection: normal inspection of the chest Resp Effort & Inspection: normal respiratory effort and able to speak in complete sentences Assessment & Plan Assessment & Plan (1) Prostate cancer: Code(s): C61 - Malignant neoplasm of prostate (2) Bladder trabeculation: Code(s): N32.89 - Other specified disorders of bladder Plan Plan MRI Orders: Orders MR pelvis wo/w con 3 Weeks C61 - Malignant neoplasm of prostate Blood Urea Nitrogen 2 Weeks C61 - Malignant neoplasm of prostate Creatinine 2 Weeks C61 - Malignant neoplasm of prostate Patient Instructions: Imaging studies, laboratory and physical exam results were discussed and reviewed in detail. No major barriers to patient understanding were identified. An opportunity to ask questions regarding the treatment plan was provided. All questions were answered. The patient expressed understanding and agreement with the above treatment plan. The patient is aware they should contact our office by phone for worsening of their current condition or the appearance of new urologic symptoms. Compliance is encouraged with any medications and followup testing that is ordered. It is a privilege to participate in the urologic care of your patient. If you have any questions or concerns regarding treatment for the above conditions, or other urologic issues, please do not hesitate to contact me. The office telephone contact is [phone]. This note is constructed using voice recognition software. While every effort has been made to ensure accuracy residential worker errors may have been included. Yours sincerely, Dr Kamran Pedro MD, [facility] - Urology Providers of Expert, Compassionate Care for the Genitourinary System Telehealth Telehealth Location of provider rendering services: practice address Location of patient: address on file Patient Identification confirmed using: Name, : Yes Telehealth method: video Patient verbally consented to treatment: Yes Patient verbally consented to billing insurance company: Yes Patient informed of any privacy concerns related to visit: Yes Coding Level of Care Code Tele Est Pt Level 4 (93349) Diagnoses Prostate cancer C61 Bladder trabeculation N32.89
== END 2023-07-01 09:28 | disposition home or self-care (01) ==
LOC: HO.HUSH 08:09
PROVIDERS: PCP Internal Medicine; Visit Provider Urology
DX: C61 Malignant neoplasm of prostate (principal); N32.89 Other specified disorders of bladder
CPT/HCPCS: 99213

== ENCOUNTER → 2023-07-01 08:09 | Outpatient (BNVA) | payer OTHER, SELFPAY | PROVIDERS: PCP Internal Medicine; Visit Provider Urology ==

== ENCOUNTER 2023-07-26 15:36 | Outpatient (AMB) | payer OTHER, SELFPAY ==
--- NOTE | 2023-07-26 15:39 | A.OFFVIS_ITS ---
Intake Visit Reasons: 4w/MRI([facility])Confirmed Intake Note: Patient is Present for Telephone Follow Up MRI Urology Med: None Antibiotic Allergy:None Blood Thinner:None Allergies No Known Allergies [No Known Allergies*] Allergy (Verified 07/26/23 15:39) Medication List - Last Reconciled 07/26/23 by Kamran Pedro MD amlodipine 10 mg PO DAILY cholecalciferol (vitamin D3) 1,250 mcg PO QWEEK 3 months latanoprost 0.005% 1 drp ophthalmic (eye) DAILY timolol maleate 0.5% 1 drp ophthalmic (eye) BID HPI Comments Details: Jani is a very pleasant [place]i male. He is a patient of Dr. Staton. He is seen for the following urologic conditions - prostate cancer Telemedicine Evaluation 15 min Consultation [employer] Had been managed for BPH with slowly elevating PSA over past 2 years Multi core grade group 1 prostate cancer Discussed MRI which shows contained disease Treatment options include brachytherapy versus robotic prostatectomy Risks and benefits highlighting urinary control and erections were discussed Refer for radiation oncology assessment and robotic prostatectomy Six week follow-up Prostate MRI 07/26 - 30 g prostate, left posterolateral peripheral zone 10 x 5 mm PI-RADS 4 lesion, central BPH Negative ECC No lymphadenopathy Given multi core grade 1 disease role of somatic testing for therapy is limited. Dr We[facility] Dr Merlin Singleton Prostate cancer, Gl 3+3, stage I, Grade 1 disease PSA 01/24 4.5 25% on finasteride Prostate Biopsy - 06/25 Size 40gm T1c Histologic type: Acinar adenocarcinoma [place] score: 3+3=6 Grade group: 1 Tumor quantitation: Number cores positive: 6 Total number of cores: 12 % of tissue involved: LBL 50%, LML 10%, RBL 10%, RMM 50%, RAL 80%, NITESH 70% Periprostatic fat inv.: Not identified Seminal vesicle inv.: Not identified Perineural inv.: Present LVI: Not identified VEENA normal PFSH Medical History Elevated PSA Glaucoma Rash and nonspecific skin eruption Essential hypertension History of hemorrhoids Dyslipidemia Vitamin D deficiency Anemia Surgical History History of colonoscopy History of hemorrhoidectomy Family History Father No problems noted. Mother Unknown family medical history Brother No problems noted. Sister No problems noted. Sister No problems noted. Son No problems noted. Son No problems noted. Daughter No problems noted. Daughter No problems noted. Daughter No problems noted. Social History Housing: House Alcohol intake: current Patient Tobacco Use Status: Never used Tobacco e-Cigarette/Vaping Use: Never Used service: No Current occupational status: employed Cognitive needs: No Hearing needs: No Vision needs: No Review of Systems Const All systems reviewed & are unremarkable except as noted in HPI and below Reports no additional complaints Resp Reports no additional complaints GI Reports no additional complaints Reports as per HPI Musc Reports no additional complaints Physical Exam Telemedicine evaluation Appropriate responses Regular breathing rate and rhythm HEENT Head: Yes normal to inspection Ears: hearing grossly normal bilaterally Eyes General: appearance normal, both eyes and all related structures Neck Neck: Yes normal visual inspection Chest Chest palpation & inspection: normal inspection of the chest Resp Effort & Inspection: normal respiratory effort and able to speak in complete sentences Telehealth Telehealth Location of provider rendering services: practice address Location of patient: address on file Patient Identification confirmed using: Name, : Yes Telehealth method: video Patient verbally consented to treatment: Yes Patient verbally consented to billing insurance company: Yes Patient informed of any privacy concerns related to visit: Yes Assessment & Plan Assessment & Plan (1) Prostate cancer: Code(s): C61 - Malignant neoplasm of prostate Category: Medical (2) Lower urinary tract symptoms: Code(s): R39.9 - Unspecified symptoms and signs involving the genitourinary system Category: Medical Plan Referral for robotic prostatectomy assessment and brachytherapy assessment Six week follow-up office Orders: Referrals Urology Referral C61 - Malignant neoplasm of prostate Radiation Oncology Referral C61 - Malignant neoplasm of prostate Patient Instructions: Imaging studies, laboratory and physical exam results were discussed and reviewed in detail. No major barriers to patient understanding were identified. An opportunity to ask questions regarding the treatment plan was provided. All questions were answered. The patient expressed understanding and agreement with the above treatment plan. The patient is aware they should contact our office by phone for worsening of their current condition or the appearance of new urologic symptoms. Compliance is encouraged with any medications and followup testing that is ordered. It is a privilege to participate in the urologic care of your patient. If you have any questions or concerns regarding treatment for the above conditions, or other urologic issues, please do not hesitate to contact me. The office telephone contact is [phone]. This note is constructed using voice recognition software. While every effort has been made to ensure accuracy lawn specialist errors may have been included. Yours sincerely, Dr Kamran Pedro MD, [facility] - Urology Providers of Expert, Compassionate Care for the Genitourinary System Coding Level of Care Code Tele Est Pt Level 4 (61881) Diagnoses Prostate cancer C61 Lower urinary tract symptoms R39.9
== END 2023-07-26 16:31 | disposition home or self-care (01) ==
LOC: HO.HUSH 15:36
PROVIDERS: PCP Internal Medicine; Visit Provider Urology
DX: C61 Malignant neoplasm of prostate (principal); R39.9 Unspecified symptoms and signs involving the genitourinary system
CPT/HCPCS: 99214

== ENCOUNTER → 2023-07-26 15:36 | Outpatient (BNVA) | payer OTHER, SELFPAY | PROVIDERS: PCP Internal Medicine; Visit Provider Urology ==

== ENCOUNTER 2023-09-06 11:38 | Outpatient (AMB) | payer OTHER, SELFPAY ==
--- NOTE | 2023-09-06 11:39 | MHC.OFFVIS ---
Intake Visit Reasons: 6w follow up Intake Note: Patient is Present for Telephone Follow Up For Urology Med: None Antibiotic Allergy: None Blood Thinner: None Patient insurance was not in network with Dr Tanner Patient wants to discuss list of providers that his Insurance does cover Allergies No Known Allergies [No Known Allergies*] Allergy (Verified 07/26/23 15:39) HPI Comments Details: Jani is a very pleasant [place]kin[place] male. He is a patient of Dr. Staton. He is seen for the following urologic conditions - prostate cancer Telemedicine Evaluation 15 min Consultation [employer] Marcell Video He has contacted his insurance company Was given [facility] as location where he could have prostate surgery Referral to be made to Dr. Dwayne Craven Prostate MRI 07/26 - 30 g prostate, left posterolateral peripheral zone 10 x 5 mm PI-RADS 4 lesion, central BPH Negative ECC No lymphadenopathy Given multi core grade 1 disease role of somatic testing for therapy is limited. Prostate cancer, Gl 3+3, stage I, Grade 1 disease PSA 01/24 4.5 25% on finasteride Prostate Biopsy - 06/25 Size 40gm T1c Histologic type: Acinar adenocarcinoma Nolan score: 3+3=6 Grade group: 1 Tumor quantitation: Number cores positive: 6 Total number of cores: 12 % of tissue involved: LBL 50%, LML 10%, RBL 10%, RMM 50%, RAL 80%, NITESH 70% Periprostatic fat inv.: Not identified Seminal vesicle inv.: Not identified Perineural inv.: Present LVI: Not identified VEENA normal PFSH Medical History Elevated PSA Glaucoma Rash and nonspecific skin eruption Essential hypertension History of hemorrhoids Dyslipidemia Vitamin D deficiency Anemia Surgical History History of colonoscopy History of hemorrhoidectomy Family History Father No problems noted. Mother Unknown family medical history Brother No problems noted. Sister No problems noted. Sister No problems noted. Son No problems noted. Son No problems noted. Daughter No problems noted. Daughter No problems noted. Daughter No problems noted. Social History (Reviewed 09/06/23 @ 11:40 by MELISSA Field Housing: House Alcohol intake: current Patient Tobacco Use Status: Never used Tobacco e-Cigarette/Vaping Use: Never Used service: No Current occupational status: employed Cognitive needs: No Hearing needs: No Vision needs: No Review of Systems Const All systems reviewed & are unremarkable except as noted in HPI and below Reports no additional complaints Resp Reports no additional complaints GI Reports no additional complaints Reports as per HPI Musc Reports no additional complaints Physical Exam Telemedicine evaluation Appropriate responses Regular breathing rate and rhythm HEENT Head: Yes normal to inspection Ears: hearing grossly normal bilaterally Eyes General: appearance normal, both eyes and all related structures Neck Neck: Yes normal visual inspection Chest Chest palpation & inspection: normal inspection of the chest Resp Effort & Inspection: normal respiratory effort and able to speak in complete sentences Telehealth Telehealth Telehealth Platform: [employer] Location of provider rendering services: practice address Location of patient: address on file Patient Identification confirmed using: Name, : Yes Telehealth method: video Patient verbally consented to treatment: Yes Patient verbally consented to billing insurance company: Yes Patient informed of any privacy concerns related to visit: Yes Minutes spent on Phone/Video with Pt.: 15 Assessment & Plan Assessment & Plan (1) Prostate cancer: Code(s): C61 - Malignant neoplasm of prostate Category: Medical Plan Referral to Dr. Bunn [facility] Orders: Referrals Urology Referral C61 - Malignant neoplasm of prostate Patient Instructions: Imaging studies, laboratory and physical exam results were discussed and reviewed in detail. No major barriers to patient understanding were identified. An opportunity to ask questions regarding the treatment plan was provided. All questions were answered. The patient expressed understanding and agreement with the above treatment plan. The patient is aware they should contact our office by phone for worsening of their current condition or the appearance of new urologic symptoms. Compliance is encouraged with any medications and followup testing that is ordered. It is a privilege to participate in the urologic care of your patient. If you have any questions or concerns regarding treatment for the above conditions, or other urologic issues, please do not hesitate to contact me. The office telephone contact is [phone]. This note is constructed using voice recognition software. While every effort has been made to ensure accuracy rubber tubing splicer errors may have been included. Yours sincerely, Dr Kamran Pedro MD, [facility] - Urology Providers of Expert, Compassionate Care for the Genitourinary System Coding Level of Care Code Tele Est Pt Level 3 (59429) Diagnoses Prostate cancer C61
== END 2023-09-06 12:05 | disposition home or self-care (01) ==
LOC: HO.HUSH 11:38
PROVIDERS: PCP Internal Medicine; Visit Provider Urology
DX: C61 Malignant neoplasm of prostate (principal)
CPT/HCPCS: 99213

== ENCOUNTER → 2023-09-06 11:38 | Outpatient (BNVA) | payer OTHER, SELFPAY | PROVIDERS: PCP Internal Medicine; Visit Provider Urology ==

== ENCOUNTER 2023-12-15 12:59 | Outpatient (AMB) | payer OTHER, SELFPAY ==
--- NOTE | 2023-12-15 13:00 | A.OFFVIS_ITS ---
Intake Visit Reasons: Discuss Surgery Intake Note: Patient is Present for Telephone discussion on surgery Targeted Cyrotherapy Urology Med: None Antibiotic Allergy:None Blood Thinner:None Dentistry Professor Required: No Allergies No Known Allergies [No Known Allergies*] Allergy (Verified 12/23/23 13:18) HPI Comments Details: Jani is a very pleasant [place]ian male. He is a patient of Dr. Staton. He is seen for the following urologic conditions - prostate cancer Telemedicine Evaluation 15 min Consultation [employer] Marcell Video Other options include targeted cryotherapy versus brachytherapy Given greater prostate cancer adequate control be achievable in the medium to long-term with either therapy Steps were discussed He has contacted his insurance company Was given [facility] as location where he could have prostate surgery Referral to be made to Dr. Dwayne Craven Prostate MRI 07/26 - 30 g prostate, left posterolateral peripheral zone 10 x 5 mm PI-RADS 4 lesion, central BPH Negative ECC No lymphadenopathy Given multi core grade 1 disease role of somatic testing for therapy is limited. Prostate cancer, Gl 3+3, stage I, Grade 1 disease PSA 01/24 4.5 25% on finasteride Prostate Biopsy - 06/25 Size 40gm T1c Histologic type: Acinar adenocarcinoma Nolan score: 3+3=6 Grade group: 1 Tumor quantitation: Number cores positive: 6 Total number of cores: 12 % of tissue involved: LBL 50%, LML 10%, RBL 10%, RMM 50%, RAL 80%, NITESH 70% Periprostatic fat inv.: Not identified Seminal vesicle inv.: Not identified Perineural inv.: Present LVI: Not identified VEENA normal PFSH Medical History Elevated PSA Glaucoma Rash and nonspecific skin eruption Essential hypertension History of hemorrhoids Dyslipidemia Vitamin D deficiency Anemia Surgical History History of colonoscopy History of hemorrhoidectomy Family History Father No problems noted. Mother Unknown family medical history Brother No problems noted. Sister No problems noted. Sister No problems noted. Son No problems noted. Son No problems noted. Daughter No problems noted. Daughter No problems noted. Daughter No problems noted. Social History Housing: House Alcohol intake: current Patient Tobacco Use Status: Never used Tobacco e-Cigarette/Vaping Use: Never Used Advance Directives: No Advance Directives Information Provided: Yes service: No Current occupational status: employed Cognitive needs: No Hearing needs: No Vision needs: No Review of Systems Const All systems reviewed & are unremarkable except as noted in HPI and below Reports no additional complaints Resp Reports no additional complaints GI Reports no additional complaints Reports as per HPI Musc Reports no additional complaints Physical Exam Telemedicine evaluation Appropriate responses Regular breathing rate and rhythm HEENT Head: Yes normal to inspection Ears: hearing grossly normal bilaterally Eyes General: appearance normal, both eyes and all related structures Neck Neck: Yes normal visual inspection Chest Chest palpation & inspection: normal inspection of the chest Resp Effort & Inspection: normal respiratory effort and able to speak in complete sentences Telehealth Telehealth Telehealth Platform: [employer] Location of provider rendering services: practice address Location of patient: address on file Patient Identification confirmed using: Name, : Yes Telehealth method: video Patient verbally consented to treatment: Yes Patient verbally consented to billing insurance company: Yes Patient informed of any privacy concerns related to visit: Yes Minutes spent on Phone/Video with Pt.: 15 Assessment & Plan Assessment & Plan (1) Prostate cancer: Code(s): C61 - Malignant neoplasm of prostate Category: Medical (2) 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 These include but are not limited to infection, bleeding, damage to local organs and tissues, need for further interventions. Anesthetic risks regarding cardiac arrhythmia, blood clots, and potential mortality were discussed. The patient understands the typical recovery time and the outpatient nature of the procedure. After consideration of these risks the patient gives full informed consent and they wish to move ahead with the procedure. - targeted brachytherapy versus targeted cryotherapy Patient Instructions: Imaging studies, laboratory and physical exam results were discussed and reviewed in detail. No major barriers to patient understanding were identified. An opportunity to ask questions regarding the treatment plan was provided. All questions were answered. The patient expressed understanding and agreement with the above treatment plan. The patient is aware they should contact our office by phone for worsening of their current condition or the appearance of new urologic symptoms. Compliance is encouraged with any medications and followup testing that is ordered. It is a privilege to participate in the urologic care of your patient. If you have any questions or concerns regarding treatment for the above conditions, or other urologic issues, please do not hesitate to contact me. The office telephone contact is [phone]. This note is constructed using voice recognition software. While every effort has been made to ensure accuracy composition tile layer errors may have been included. Yours sincerely, Dr Kamran Pedro MD, [facility] - Urology Providers of Expert, Compassionate Care for the Genitourinary System Coding Level of Care Code Tele Est Pt Level 3 (35454) Diagnoses Prostate cancer C61 Bladder trabeculation N32.89
== END 2023-12-15 16:00 | disposition left against medical advice (07) ==
LOC: HO.HUSH 12:59
PROVIDERS: PCP Internal Medicine; Visit Provider Urology
DX: C61 Malignant neoplasm of prostate (principal); N32.89 Other specified disorders of bladder
CPT/HCPCS: 99213

== ENCOUNTER → 2023-12-15 12:59 | Outpatient (BNVA) | payer OTHER, SELFPAY | PROVIDERS: PCP Internal Medicine; Visit Provider Urology ==

== ENCOUNTER 2023-12-20 13:59 | Outpatient (AMB) | payer OTHER, SELFPAY ==
--- NOTE | 2023-12-20 14:01 | MHC.OFFVIS ---
Intake Visit Reasons: discuss surgery- r/s from 12/14 Intake Note: Patient is Present for Telephone discussion on surgery Targeted Cyrotherapy Urology Med: None Antibiotic Allergy:None Blood Thinner:None Adult Secondary Education Instructor Required: No Allergies No Known Allergies [No Known Allergies*] Allergy (Verified 12/23/23 13:18) HPI Comments Details: Jani is a very pleasant [place] male. He is a patient of Dr. Staton. He is seen for the following urologic conditions - prostate cancer Telemedicine Evaluation 15 min Consultation [employer] Marcell Video He has contacted his insurance company Was given [facility] as location where he could have prostate surgery Referral to be made to Dr. Dwayne Craven Other option would be seed placement Prostate MRI 07/26 - 30 g prostate, left posterolateral peripheral zone 10 x 5 mm PI-RADS 4 lesion, central BPH Negative ECC No lymphadenopathy Given multi core grade 1 disease role of somatic testing for therapy is limited. Prostate cancer, Gl 3+3, stage I, Grade 1 disease PSA 01/24 4.5 25% on finasteride Prostate Biopsy - 06/25 Size 40gm T1c Histologic type: Acinar adenocarcinoma Nolan score: 3+3=6 Grade group: 1 Tumor quantitation: Number cores positive: 6 Total number of cores: 12 % of tissue involved: LBL 50%, LML 10%, RBL 10%, RMM 50%, RAL 80%, NITESH 70% Periprostatic fat inv.: Not identified Seminal vesicle inv.: Not identified Perineural inv.: Present LVI: Not identified VEENA normal PFSH Medical History Elevated PSA Glaucoma Rash and nonspecific skin eruption Essential hypertension History of hemorrhoids Dyslipidemia Vitamin D deficiency Anemia Surgical History History of colonoscopy History of hemorrhoidectomy Family History Father No problems noted. Mother Unknown family medical history Brother No problems noted. Sister No problems noted. Sister No problems noted. Son No problems noted. Son No problems noted. Daughter No problems noted. Daughter No problems noted. Daughter No problems noted. Social History Housing: House Alcohol intake: current Patient Tobacco Use Status: Never used Tobacco e-Cigarette/Vaping Use: Never Used Advance Directives: No Advance Directives Information Provided: Yes service: No Current occupational status: employed Cognitive needs: No Hearing needs: No Vision needs: No Review of Systems Const All systems reviewed & are unremarkable except as noted in HPI and below Reports no additional complaints Resp Reports no additional complaints GI Reports no additional complaints Reports as per HPI Musc Reports no additional complaints Physical Exam Telemedicine evaluation Appropriate responses Regular breathing rate and rhythm HEENT Head: Yes normal to inspection Ears: hearing grossly normal bilaterally Eyes General: appearance normal, both eyes and all related structures Neck Neck: Yes normal visual inspection Chest Chest palpation & inspection: normal inspection of the chest Resp Effort & Inspection: normal respiratory effort and able to speak in complete sentences Telehealth Telehealth Telehealth Platform: [employer] Location of provider rendering services: practice address Location of patient: address on file Patient Identification confirmed using: Name, : Yes Telehealth method: video Patient verbally consented to treatment: Yes Patient verbally consented to billing insurance company: Yes Patient informed of any privacy concerns related to visit: Yes Minutes spent on Phone/Video with Pt.: 15 Assessment & Plan Assessment & Plan (1) Prostate cancer: Code(s): C61 - Malignant neoplasm of prostate Category: Medical (2) Bladder trabeculation: Code(s): N32.89 - Other specified disorders of bladder Category: Medical Plan Referral to [facility] for prostate surgery removal assessment Patient Instructions: Imaging studies, laboratory and physical exam results were discussed and reviewed in detail. No major barriers to patient understanding were identified. An opportunity to ask questions regarding the treatment plan was provided. All questions were answered. The patient expressed understanding and agreement with the above treatment plan. The patient is aware they should contact our office by phone for worsening of their current condition or the appearance of new urologic symptoms. Compliance is encouraged with any medications and followup testing that is ordered. It is a privilege to participate in the urologic care of your patient. If you have any questions or concerns regarding treatment for the above conditions, or other urologic issues, please do not hesitate to contact me. The office telephone contact is [phone]. This note is constructed using voice recognition software. While every effort has been made to ensure accuracy thermite welder errors may have been included. Yours sincerely, Dr Kamran Pedro MD, [facility] - Urology Providers of Expert, Compassionate Care for the Genitourinary System Coding Level of Care Code Tele Est Pt Level 3 (53799) Diagnoses Prostate cancer C61 Bladder trabeculation N32.89
== END 2023-12-20 15:32 | disposition home or self-care (01) ==
LOC: HO.HUSH 13:59
PROVIDERS: PCP Internal Medicine; Visit Provider Urology
DX: C61 Malignant neoplasm of prostate (principal); N32.89 Other specified disorders of bladder
CPT/HCPCS: 99213

== ENCOUNTER → 2023-12-20 13:59 | Outpatient (BNVA) | payer OTHER, SELFPAY | PROVIDERS: PCP Internal Medicine; Visit Provider Urology ==

== ENCOUNTER 2023-12-23 12:43 | Emergency (ER) | payer OTHER, SELFPAY ==
--- NOTE | ~2023-12-23 | CT_ITS ---
CT HEAD AND CERVICAL SPINE WITHOUT CONTRAST HISTORY: Trauma TECHNIQUE: Contiguous axial imaging was performed from the skull base to vertex without intravenous contrast. Sagittal and coronal reformatted images were obtained. CT images of the cervical spine were acquired without intravenous contrast. This CT examination was performed using dose optimization techniques as appropriate, variously including the following: *Automated exposure control *Adjustment of mA and/or kV according to patient size (this includes techniques or standardized protocols for targeted exams where dose is matched to indication/reason for exam; i.e. extremities or head) *Use of iterative reconstruction technique DLP: 128 mGy-cm COMPARISON: CT head November 03, 2019 FINDINGS: CT HEAD: Background of mild generalized parenchymal volume loss, progressed. Confluent periventricular and deep white matter hypoattenuation is nonspecific but may reflect moderate to severe small vessel ischemic changes. Redemonstrated chronic left striatocapsular infarct. No territorial loss of kohler-white differentiation. Calcific plaque along the carotid siphons. No acute intracranial hemorrhage or extra-axial fluid collection. No mass lesion, significant mass effect, or herniation pattern. The orbits are grossly normal. Mild patchy paranasal sinus mucosal thickening. No mastoid effusion. 6 mm osteolytic lesion within the anterior right frontal calvarium with osseous thinning of the inner and outer tables is stable since 2019, compatible with a benign etiology. Diffusely seen left frontal subgaleal lipoma is no longer visualized. CT CERVICAL SPINE: No prevertebral soft tissue swelling. The craniocervical junction is intact. Vertebral body heights are normal without acute compression fracture or traumatic posterior element subluxation. Please note that CT is insensitive for evaluating spinal canal patency without intrathecal contrast. There is multilevel cervical spondylosis, notably with severe hypertrophic left C4-C5 facet arthropathy contributing to severe left neural foraminal stenosis at this level. Normal appearance of the paraspinal soft tissues. Visualized lung apices are clear. Heterogeneous thyroid gland. CT/CT cervical spine wo IV con IMPRESSION: 1. No CT evidence of acute intracranial injury. Progressive mild global cerebral volume loss. Redemonstrated nonspecific white matter disease, presumably moderate to severe small vessel ischemic changes and chronic left striatocapsular infarct. 2. No evidence of acute traumatic injury in the cervical spine. Electronically signed by: Sola Etienne MD 12/23/2023 04:32 PM EDT
[2023-12-23 13:15] VITALS: BP 157/92; PULSE 57; RESP 16; TEMP 37; O2SAT 100; BMI 22.1
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
[2023-12-23 14:00] VITALS: BP 159/101; PULSE 50; RESP 16; TEMP 36.6; O2SAT 98
[2023-12-23] MEDS: Cyclobenzaprine HCl 5 MG TABLET PO (15:43)
[2023-12-23] MEDS: Acetaminophen 325 MG TABLET 650 MG PO (15:43)
[2023-12-23 17:07] VITALS: BP 163/94; PULSE 50; RESP 16; TEMP 36.6; O2SAT 98
[2023-12-23 17:57] VITALS: BP 163/94; PULSE 50; RESP 16; TEMP 36.6; O2SAT 98
== END 2023-12-23 17:57 | disposition home or self-care (01) ==
PROVIDERS: Emergency Provider Emergency Medicine; PCP Internal Medicine
DX: S16.1XXA Strain of muscle, fascia and tendon at neck level, initial encounter (principal); M54.2 Cervicalgia; R51.9 Headache, unspecified; V43.52XA Car driver injured in collision with other type car in traffic accident, initial encounter; Y93.89 Activity, other specified; Y92.488 Other paved roadways as the place of occurrence of the external cause; Y99.8 Other external cause status
CPT/HCPCS: 70450; 72125; 99283; 99284

== ENCOUNTER 2024-05-11 11:54 | Outpatient (AMB) | payer OTHER, SELFPAY ==
--- NOTE | 2024-05-11 11:54 | A.OFFVIS_ITS ---
Intake Visit Reasons: Prostate cancer- follow up Intake Note: Patient is present for Telephone follow up/[facility] Urology Med: None Antibiotic Allergy: None Blood Thinner: None Accompanied by: Self / Same As Patient Allergies No Known Allergies [No Known Allergies*] Allergy (Verified 08/01/24 11:25) HPI Comments Details: Jani is a very pleasant [place] male. He is a patient of Dr. Staton. He is seen for the following urologic conditions - prostate cancer Telemedicine Evaluation 15 min Consultation Parabel Marcell Video attempted Has been through procedure Prostate MRI 07/26 - 30 g prostate, left posterolateral peripheral zone 10 x 5 mm PI-RADS 4 lesion, central BPH Negative ECC No lymphadenopathy Given multi core grade 1 disease role of somatic testing for therapy is limited. Prostate cancer, Gl 3+3, stage I, Grade 1 disease PSA 01/24 4.5 25% on finasteride Prostate Biopsy - 06/25 Size 40gm T1c Histologic type: Acinar adenocarcinoma Nolan score: 3+3=6 Grade group: 1 Tumor quantitation: Number cores positive: 6 Total number of cores: 12 % of tissue involved: LBL 50%, LML 10%, RBL 10%, RMM 50%, RAL 80%, NITESH 70% Periprostatic fat inv.: Not identified Seminal vesicle inv.: Not identified Perineural inv.: Present LVI: Not identified VEENA normal PFSH Medical History Glaucoma Rash and nonspecific skin eruption Essential hypertension History of hemorrhoids Dyslipidemia Vitamin D deficiency Anemia Surgical History History of colonoscopy History of hemorrhoidectomy Family History Father No problems noted. Mother Unknown family medical history Brother No problems noted. Sister No problems noted. Sister No problems noted. Son No problems noted. Son No problems noted. Daughter No problems noted. Daughter No problems noted. Daughter No problems noted. Social History Housing: House Alcohol intake: current Patient Tobacco Use Status: Never used Tobacco e-Cigarette/Vaping Use: Never Used service: No Current occupational status: employed Cognitive needs: No Hearing needs: No Vision needs: No Review of Systems Const All systems reviewed & are unremarkable except as noted in HPI and below Reports no additional complaints Resp Reports no additional complaints GI Reports no additional complaints Reports as per HPI Musc Reports no additional complaints Physical Exam Telemedicine evaluation Appropriate responses Regular breathing rate and rhythm HEENT Head: Yes normal to inspection Ears: hearing grossly normal bilaterally Eyes General: appearance normal, both eyes and all related structures Neck Neck: Yes normal visual inspection Chest Chest palpation & inspection: normal inspection of the chest Resp Effort & Inspection: normal respiratory effort and able to speak in complete sentences Telehealth Telehealth Telehealth Platform: DoxFX Aligned Location of provider rendering services: practice address Location of patient: address on file Patient Identification confirmed using: Name, : Yes Telehealth method: video Patient verbally consented to treatment: Yes Patient verbally consented to billing insurance company: Yes Patient informed of any privacy concerns related to visit: Yes Minutes spent on Phone/Video with Pt.: 15 Assessment & Plan Assessment & Plan (1) Prostate cancer: Comment: [facility] in [place] , Dr christy , who referred him to Dr Ibanez to start Radiation therapy Code(s): C61 - Malignant neoplasm of prostate Category: Medical Plan Following with Radiation Oncology Patient Instructions: This note is constructed using voice recognition software. While every effort has been made to ensure accuracy floor care technician errors may have been included. Imaging studies, laboratory and physical exam results were discussed and reviewed in detail. No major barriers to patient understanding were identified. An opportunity to ask questions regarding the treatment plan was provided. All questions were answered. The patient expressed understanding and agreement with the above treatment plan. The patient is aware they should contact our office by phone for worsening of their current condition or the appearance of new urologic symptoms. Compliance is encouraged with any medications and followup testing that is ordered. It is a privilege to participate in the urologic care of your patient. If you have any questions or concerns regarding treatment for the above conditions, or other urologic issues, please do not hesitate to contact me. The office telephone contact is [phone]. Sincerely, Dr Kamran Pedro MD, COLETTE [facility] - Urology Compassionate Specialist Care for the Genitourinary System Coding Level of Care Code Tele Est Pt Level 3 (30499) Diagnoses Prostate cancer C61
--- OUTSIDE RECORDS SUMMARY | 2024-05-11 12:54 | XMS_ITS | Encounter Summary ---
Author Organization [facility] Address [address] [place] [address] Care Team Providers Care Audio Visual Tech Name Role Phone Solange Staton MD Primary Care Provider +1- [phone] Encounter Details Date Type Department Care Team (Late st Contact Info) Description 08/02/2023 Scanned Document [address] [place] [phone] Solange Staton MD [address] [place] [address] Social History Tobacco Use Types Packs/Day Years Used Date Smoking Tobacco: Never Assessed Sex and Gender Information Value Date Recorded Sex Assigned at Male 08/01/2023 2:38 PM EDT Gender Identity Male 08/01/2023 2:38 PM EDT Sexual Orientation Heterosexual (straight) 07/31 2:38 PM EDT documented as of this encounter Plan of Treatment Not on file documented as of this encounter Visit Diagnoses Not on filedocumented in this encounter Care Teams Audio Visual Tech Relationship Specialty Start Date End Date Solange Staton MD [address] [place], [place] [phone] PCP - General Internal Medicine 08/01/23 documented as of this encounter
--- OUTSIDE RECORDS SUMMARY | 2024-05-11 12:54 | XMS_ITS | Encounter Summary ---
Author Organization [facility] Address [address] [place] [address] Care Team Providers Care Stationary Fireman Name Role Phone Solange Staton MD Primary Care Provider +1- [phone] Reason for Visit * Reason Comments Appointment Referral Encounter Details Date Type Department Care Team (Late st Contact Info) Description 08/01/[address] [phone] Provider, Generic Appointment; Referral Social History Tobacco Use Types Packs/Day Years [...] on filedocumented in this encounter Care Teams Stationary Fireman Relationship Specialty Start Date End Date Solange Staton MD [address] [facility] [place] [address] PCP - General Internal Medicine 08/01/23 documented as of this encounter
--- OUTSIDE RECORDS SUMMARY | 2024-05-11 12:54 | XMS_ITS | Encounter Summary ---
Author Organization [facility] Address [address] [place] [address] Care Team Providers Care Parcel Post Clerk Name Role Phone Solange Staton MD Primary Care Provider +1- [phone] Encounter Details Date Type Department Care Team (Late st Contact Info) Description 08/02/2023 Scanned Document [address] [place] [phone] Solange Staton MD [address] [place] [address] Social History Tobacco Use Types Packs/Day Years [...] on filedocumented in this encounter Care Teams Parcel Post Clerk Relationship Specialty Start Date End Date Solange Staton MD [address] [place], [place] [phone] PCP - General Internal Medicine 08/01/23 documented as of this encounter
--- OUTSIDE RECORDS SUMMARY | 2024-05-11 12:54 | XMS_ITS | Encounter Summary ---
Author Organization [facility] Address [address] [place] [address] Care Team Providers Care Pigment Grinder Name Role Phone Solange Staton MD Primary Care Provider +1- [phone] Encounter Details Date Type Department Care Team (Late st Contact Info) Description 08/02/2023 Scanned Document [facility] 10 [facility] [address] [place] [phone] Provider, MD Soraya [address] [place] [address] Social History Tobacco Use Types Packs/Day Years [...] on filedocumented in this encounter Care Teams Pigment Grinder Relationship Specialty Start Date End Date Solange Staton MD [address] [facility] [place] [address] PCP - General Internal Medicine 08/01/23 documented as of this encounter
--- OUTSIDE RECORDS SUMMARY | 2024-05-11 12:54 | XMS_ITS | Encounter Summary ---
Author Organization [facility] Address [address] [place] [address] Care Team Providers Care Ornamental Bronze Worker Name Role Phone Solange Staton MD Primary Care Provider +1- [phone] Encounter Details Date Type Department Care Team (Late st Contact Info) Description 08/02/2023 Scanned Document [facility] 10 [facility] [address] [place] [phone] Provider, MD Soraya [address] [place] [address] Social History Tobacco Use Types Packs/Day Years [...] on filedocumented in this encounter Care Teams Ornamental Bronze Worker Relationship Specialty Start Date End Date Solange Staton MD 262 [facility] [place] [address] PCP - General Internal Medicine 08/01/23 documented as of this encounter
--- OUTSIDE RECORDS SUMMARY | 2024-05-11 12:54 | XMS_ITS | Encounter Summary ---
Author Organization [facility] Address [address] [place] [address] Care Team Providers Care Utilization Specialist Name Role Phone Solange Staton MD Primary Care Provider +1- [phone] Encounter Details Date Type Department Care Team (Late st Contact Info) Description 08/02/2023 Scanned Document [address] [place] [phone] Solange Staton MD [address] [place] [address] Social History Tobacco Use Types Packs/Day Years [...] on filedocumented in this encounter Care Teams Utilization Specialist Relationship Specialty Start Date End Date Solange Staton MD [address] [place], [place] [phone] PCP - General Internal Medicine 08/01/23 documented as of this encounter
--- OUTSIDE RECORDS SUMMARY | 2024-05-11 12:54 | XMS_ITS | Clinical Summary ---
Author Organization [facility] Address [address] [place] [address] Care Team Providers Care Apple Peeler Operator Name Role Phone Solange Staton MD Primary Care Provider Social History Tobacco Use Types Packs/Day Years Used Date Smoking Tobacco: Never Assessed Sex and Gender Information Value Date Recorded Sex Assigned at Male 08/01/2023 2:38 PM EDT Gender Identity Male 08/01/2023 2:38 PM EDT Sexual Orientation Heterosexual (straight) 07/31 2:38 PM EDT Plan of Treatment Health Maintenance Due Date Last Done Comments Hepatitis C Virus Screening 1961 HIV Screening 1974 DTaP/Tdap/Td Vaccines (1 - Tdap) 01/26/1980 Colonoscopy 2006 Pneumococcal Vaccines 50+ (1 of 1 - PCV) 2011 Zoster (Shingles) Vaccine (1 of 2) 2011 Influenza Vaccine 11/03/2023 COVID-19 Vaccine (1 - 2023-2 5 season) 2023 RSV Vaccine 60 years and old er and Patients (1 - 1-dose 75+ series) 01/26/2036 Hepatitis B Vaccines Aged Out No long er eligible based on patient's age to complete this topic Pneumococcal Vaccine: Pediat mesfin (0-5 Years) and At-Risk Patients (6 to 49 Years) Aged Out No longer eligible b ased on patient's age to complete this topic Care Teams Apple Peeler Operator Relationship Specialty Start Date End Date Solange Staton MD 262 [facility] [place] [id number] PCP - General Internal Medicine 08/01/23
--- OUTSIDE RECORDS SUMMARY | 2024-05-11 12:54 | XMS_ITS | Encounter Summary ---
Author Organization [facility] Address [address] [place] [address] Care Team Providers Care Advance Scout Name Role Phone Solange Staton MD Primary Care Provider +1- [phone] Encounter Details Date Type Department Care Team (Late st Contact Info) Description 08/02/2023 Scanned Document [address] [place] [phone] Solange Staton MD [address] [place] [address] Social History Tobacco Use Types Packs/Day Years [...] on filedocumented in this encounter Care Teams Advance Scout Relationship Specialty Start Date End Date Solange Staton MD [address] [place], [place] [phone] PCP - General Internal Medicine 08/01/23 documented as of this encounter
--- OUTSIDE RECORDS SUMMARY | 2024-05-11 12:54 | XMS_ITS | Clinical Summary ---
Author Organization [facility] Address [address] [place] [address] Care Team Providers Care Automotive Porter Name Role Phone Steve Marcelo MD Primary Care Provider Immunizations Name Administration Dates Next Due Influenza,injectable,quad,Prsrv Fr 05/12/2022 Influenza,seasonal,trivalent ,preservative (FLUZONE MDV) 04/21/2012 Tdap 06/20/2018,07/13/2012 Social History Tobacco Use Types Packs/Day Years Used Date Smoking Tobacco: Never Assessed Sex and Gender Information Value Date Recorded Sex Assigned at Male 09/09/2023 2:37 PM EDT Legal Sex Male 2:36 PM EDT Gender Identity Male 09/09/2023 2:37 PM EDT Sexual Orientation Not on file Plan of Treatment Health Maintenance Due Date Last Done Comments Hepatitis C Screening 1961 Colon Cancer Screening 2006 Pneumococcal 50+ years (1 of 1 - PCV) 2011 Zoster (Shingrix) (1 of 2) 2011 COVID-19 Vaccine ( - 2023-2 5 season) 2023 Influenza (#1) 2023 05/12/2022, 04/21/2012 DTaP/Tdap/Td (3 - Td or Tdap) 06/20/2028, 07/13/2012 RSV (1 - 1-dose 75+ series) 01/26/2036 HPV Vaccine Aged Out No longer eligi ble based on patient's age to complete this topic Hep A Aged Out No longer eligi ble based on patient's age to complete this topic Hep B Aged Out No longer eligi ble based on patient's age to complete this topic Hib Aged Out No longer eligi ble based on patient's age to complete this topic Meningococcal ACWY Aged Out No longer eligible based on patient's age to complete this topic Zoster (Zostavax) Discontinued Insurance [facility] [employer] Care Teams Automotive Porter Relationship Specialty Start Date End Date Steve Marcelo MD [facility] [address] [place], [place] [phone] PCP - General Internal Medicine 10/13/23 DR STEVE MARCELO [address] [facility] [id number] Primary Care Provider 09/09/23
== END 2024-05-11 13:20 | disposition home or self-care (01) ==
LOC: HO.HUSH 11:54
PROVIDERS: PCP Internal Medicine; Visit Provider Urology
DX: C61 Malignant neoplasm of prostate (principal)
CPT/HCPCS: 99213

== ENCOUNTER → 2024-05-11 11:54 | Outpatient (BNVA) | payer OTHER, SELFPAY | PROVIDERS: PCP Internal Medicine; Visit Provider Urology ==

== ENCOUNTER 2024-06-11 14:07 | Outpatient (REF) | payer OTHER, SELFPAY ==
--- OUTSIDE RECORDS SUMMARY | 2024-06-11 16:07 | XMS_ITS | Encounter Summary ---
Author Organization [facility] [place] [facility] Address [address] [place] [address] Care Team Providers Care Dermatology Nurse Practitioner Name Role Phone Solange Staton MD Primary Care Provider +1- [phone] Reason for Visit * Reason Comments Appointment Referral Encounter Details Date Type Department Care Team (Late st Contact Info) Description 08/01/[address] [phone] Provider, Generic Appointment; Referral Social [...] on filedocumented in this encounter Care Teams Dermatology Nurse Practitioner Relationship Specialty Start Date End Date Solange Staton MD [address] [facility] [place] [address] PCP - General Internal Medicine 08/01/23 documented as of this encounter
--- OUTSIDE RECORDS SUMMARY | 2024-06-11 16:07 | XMS_ITS | Encounter Summary ---
Author Organization [facility] Address [address] [place] [address] Care Team Providers Care Emergency Vehicle Operator Name Role Phone Solange Staton MD Primary Care Provider +1- [phone] Encounter Details Date Type Department Care Team (Late st Contact Info) Description 08/02/2023 Scanned Document [facility] 10 [facility] [address] [place] [phone] Provider, MD Soraya [address] [place] [address] Social History Tobacco Use Types Packs/Day Years [...] on filedocumented in this encounter Care Teams Emergency Vehicle Operator Relationship Specialty Start Date End Date Solange Staton MD [address] [facility] [place] [address] PCP - General Internal Medicine 08/01/23 documented as of this encounter
--- OUTSIDE RECORDS SUMMARY | 2024-06-11 16:07 | XMS_ITS | Encounter Summary ---
Author Organization [facility] Address [address] [place] [address] Care Team Providers Care Welder Fitter Helper Name Role Phone Solange Staton MD Primary Care Provider +1- [phone] Encounter Details Date Type Department Care Team (Late st Contact Info) Description 08/02/2023 Scanned Document [facility] 10 [facility] [address] [place] [phone] Provider, MD Soraya [address] [place] [address] Social History Tobacco Use Types Packs/Day Years [...] on filedocumented in this encounter Care Teams Welder Fitter Helper Relationship Specialty Start Date End Date Solange Staton MD 262 [facility] [place] [address] PCP - General Internal Medicine 08/01/23 documented as of this encounter
--- OUTSIDE RECORDS SUMMARY | 2024-06-11 16:07 | XMS_ITS | Encounter Summary ---
Author Organization [facility] Address [address] [place] [address] Care Team Providers Care Correctional Facility Nurse Name Role Phone Solange Staton MD Primary Care Provider +1- [phone] Encounter Details Date Type Department Care Team (Late st Contact Info) Description 08/02/2023 Scanned Document [address] [place] [phone] Solange Staton MD [address] [place] [address] Social History Tobacco Use Types Packs/Day Years [...] on filedocumented in this encounter Care Teams Correctional Facility Nurse Relationship Specialty Start Date End Date Solange Staton MD [address] [place], [place] [phone] PCP - General Internal Medicine 08/01/23 documented as of this encounter
--- OUTSIDE RECORDS SUMMARY | 2024-06-11 16:07 | XMS_ITS | Encounter Summary ---
Author Organization [facility] Address [address] [place] [address] Care Team Providers Care Mushroom Picker Name Role Phone Solange Staton MD Primary Care Provider +1- [phone] Encounter Details Date Type Department Care Team (Late st Contact Info) Description 08/02/2023 Scanned Document [address] [place] [phone] Solange Staton MD [address] [place] [address] Social History Tobacco Use Types Packs/Day Years [...] on filedocumented in this encounter Care Teams Mushroom Picker Relationship Specialty Start Date End Date Solange Staton MD [address] [place], [place] [phone] PCP - General Internal Medicine 08/01/23 documented as of this encounter
--- OUTSIDE RECORDS SUMMARY | 2024-06-11 16:07 | XMS_ITS | Clinical Summary ---
Author Organization [facility] Address [address] [place] [address] Care Team Providers Care Zoology Professor Name Role Phone Steve Marcelo MD Primary [...] complete this topic Zoster (Zostavax) Discontinued Insurance [facility] PLAN-OUT OF NETWORK Care Teams Zoology Professor Relationship Specialty Start Date End Date Steve Marcelo MD [facility] [address] [place], [place] [phone] PCP - General Internal Medicine 10/13/23 DR STEVE MARCELO [address] [facility] [id number] Primary Care Provider 09/09/23
--- OUTSIDE RECORDS SUMMARY | 2024-06-11 16:07 | XMS_ITS | Encounter Summary ---
Author Organization [facility] Address [address] [place] [address] Care Team Providers Care Assistant Real Estate Manager Name Role Phone Solange Staton MD Primary Care Provider +1- [phone] Encounter Details Date Type Department Care Team (Late st Contact Info) Description 08/02/2023 Scanned Document [address] [place] [phone] Solange Staton MD [address] [place] [address] Social History Tobacco Use Types Packs/Day Years [...] on filedocumented in this encounter Care Teams Assistant Real Estate Manager Relationship Specialty Start Date End Date Solange Staton MD [address] [place], [place] [phone] PCP - General Internal Medicine 08/01/23 documented as of this encounter
--- OUTSIDE RECORDS SUMMARY | 2024-06-11 16:07 | XMS_ITS | Clinical Summary ---
Author Organization [facility] Address [address] [place] [address] Care Team Providers Care Rafter Cutting Machine Operator Name Role Phone Solange Staton MD Primary Care Provider [phone] Social History Tobacco Use Types Packs/Day Years [...] age to complete this topic Care Teams Rafter Cutting Machine Operator Relationship Specialty Start Date End Date Solange Staton MD 262 [facility] [place] [phone] PCP - General Internal Medicine 08/01/23
--- OUTSIDE RECORDS SUMMARY | 2024-06-11 16:07 | XMS_ITS | Encounter Summary ---
Author Organization [facility] Address [address] [place] [address] Care Team Providers Care Aquaculture Program Director Name Role Phone Solange Staton MD Primary Care Provider +1- [phone] Encounter Details Date Type Department Care Team (Late st Contact Info) Description 08/02/2023 Scanned Document [address] [place] [phone] Solange Staton MD [address] [place] [address] Social History Tobacco Use Types Packs/Day Years [...] on filedocumented in this encounter Care Teams Aquaculture Program Director Relationship Specialty Start Date End Date Solange Staton MD [address] [place], [place] [phone] PCP - General Internal Medicine 08/01/23 documented as of this encounter
[2024-06-11 17:13] LABS: Alanine Aminotransferase 9 U/L (0-40); Anion Gap 13 (12-20); Aspartate Amino Transferase 17 U/L (5-37); Blood Urea Nitrogen 9 mg/dL (9-16); Calcium 9.7 mg/dL (8.4-10.2); Carbon Dioxide 27 mmol/L (22-29); Chloride 107 mmol/L (96-108); Cholesterol 205 mg/dL (<200); Estimated Glomerular Filt Rate > 60; Glucose Fasting 86 mg/dL (60-99); HDL Cholesterol 52 mg/dL (>40); LDL Cholesterol Calculated 140 mg/dL (<100); Potassium 3.8 mmol/L (3.3-5.1); Sodium 143 mmol/L (135-145); Triglycerides 66 mg/dL (<150)
== END 2024-06-11 14:08 | disposition home or self-care (01) ==
LOC: HO.HMGCLDS 14:07
PROVIDERS: PCP Internal Medicine; Visit Provider Internal Medicine
DX: I10 Essential (primary) hypertension (principal); E78.5 Hyperlipidemia, unspecified
CPT/HCPCS: 36415; 80048; 80061; 84450; 84460

== ENCOUNTER 2024-08-01 10:22 | Outpatient (AMB) | payer OTHER, SELFPAY ==
--- NOTE | 2024-08-01 10:59 | A.OFFPC_ITS ---
Vital Signs 08/01/24 11:13 Height 5 ft 5 in Weight 134 lb BMI 22.3 BP 142/98 H Blood Pressure Location Lt brachial Position Sitting Respiration 15 Pulse 56 Pulse Source Pulse Oximeter Temp 98.3 F Temp Source Oral Pulse Oximetry (%) 99 Oxygen Delivery Method Room Air Intake Visit Reasons: PE Intake Note: Pt is here today for his PE: Last colonoscopy 10/24/19 Allergies No Known Allergies [No Known Allergies*] Allergy (Verified 08/01/24 11:25) Medication List - Last Reconciled 08/01/24 by Solange Staton MD amlodipine 10 mg PO DAILY latanoprost 0.005% 1 drp ophthalmic (eye) DAILY timolol maleate 0.5% 1 drp ophthalmic (eye) BID Tobacco use date assessed: 08/01/24 Dental Screening Dental Screen Date: 08/01/24 Did you have a dental visit in the last 12 months?: Yes Did you have a dental problem in the last 6 months where you did not have access to dental care?: No Was dental information given to patient?: Patient has dentist HPI PE HPI Details - The patient is a 64 year old male with history glaucoma, hypertension and dyslipidemia, here today for his physical exam. - The patient had an elevated LDL choles terol of 140 mg/dL on recent labs done but it is, down from 153 mg/dL, .. Patient states that he has been recently broad and has not been really been compliant with a healthy diet - he has hypertension, he states that hi s spouse prepares food with high salt content, leading to concern about sodium intake. - The patient has been managing prostate cancer with radiation therapy, followed by Dr Pedro. - Glaucoma is being treated with injecti ons, with no recent changes in ocular symptoms reported. [facility] Medical History Glaucoma Rash and nonspecific skin eruption Essential hypertension History of hemorrhoids Dyslipidemia Vitamin D deficiency Anemia Surgical History History of colonoscopy History of hemorrhoidectomy Family History Father No problems noted. Mother Unknown family medical history Brother No problems noted. Sister No problems noted. Sister No problems noted. Son No problems noted. Son No problems noted. Daughter No problems noted. Daughter No problems noted. Daughter No problems noted. Social History Housing: House Alcohol intake: current Patient Tobacco Use Status: Never used Tobacco e-Cigarette/Vaping Use: Never Used service: No Current occupational status: employed Cognitive needs: No Hearing needs: No Vision needs: No Questionnaire PHQ-9 Over the last 2 weeks, how often have you been bothered by any of the following problems? 1. Little interest or pleasure in doing things: not at all 2. Feeling down, depressed, or hopeless: not at all 3. Trouble falling or staying asleep, or sleeping too much: not at all 4. Feeling tired or having little energy: nearly every day 5. Poor appetite or overeating: not at all 6. Feeling bad about yourself - or that you are a failure or have let yourself or your family down: not at all 7. Trouble concentrating on things, such as reading the newspaper or watching television: not at all 8. Moving or speaking so slowly that other people could have noticed. Or the opposite - being so fidgety or restless that you have been moving around a lot more than usual: not at all 9. Thoughts that you would be better off or of hurting yourself in some way: not at all Total score: 3 Depression Screening Interpretation: Negative Depression Screening Done: Yes 10078 - PHQ-9 Billing: Yes Source: Developed by Drs. Hans Anderson, Yudith Maurice, Lamin Young and colleagues, with an educational jaelyn from [employer]. Thrive Questionnaire Date Thrive assessed: 08/01/24 I am a: Patient What is your living situation today?: I have a steady place to live Within the past 12 months, did the food you bought not last and you didn't have the money to get more?: Never true Within the past 12 months, did you worry whether your food would run out before you got money to buy more?: Never true Do you have trouble paying for medicines?: No Do you have trouble getting transportation to medical appointments?: No Do you have trouble paying your heating and electricity bill?: I choose not to answer this question Do you have trouble taking care of your child, family member or friend?: No Do you have trouble with day-to-day activities such as bathing, preparing meals, shopping, managing finances, etc.?: No Are you currently unemployed and looking for a job?: No Are you interested in more education?: No Please select the resources that you would like help with: Care for elder or disabled Currently or been in a relationship where the following occur: No concerns reported THRIVE Score: 0 AUDIT C Alcohol Use Questionnaire (AUDIT-C) 1. How often do you have a drink containing alcohol?: Monthly or less 2. How many drinks containing alcohol do you have on a typical day when you are drinking?: 1 or 2 3. How often do you have six or more drinks on one occasion?: Never Total Score: 1 DONITA-7 AMB Questionnaire DONITA-7 Date DONITA - 7 assessed: 08/01/24 Feeling nervous, anxious, or on edge: 0 = Not at all Not being able to stop or control worryin = Not at all Worrying too much about different things: 3 = Nearly every day Trouble relaxin = Not at all Being so restless that it is hard to sit still: 0 = Not at all Becoming easily annoyed or irritable: 0 = Not at all Feeling afraid as if something awful might happen: 0 = Not at all Total DONITA-7 score (0-4 normal; 5-9 mild; 10-14 moderate; 15-21 severe): 3 Source: Developed by Drs. Hans Anderson, Yudith Maurice, Lamin Young and colleagues, with an educational jaelyn from [employer]. DONITA-7 Assessment Billing DONITA-7 Assessment Tool: DONITA-7 Assessment 81281 Review of Systems Const Denies body aches, Denies fatigue, Denies fever(s), Denies headache(s) and Denies weakness Eyes Details: Sees Dr. Gilbert at [facility] for treatment of glaucoma ENT Denies dizziness, Denies headache(s) and Denies nasal congestion Card Denies chest pain, Denies lightheadedness, Denies palpitations and Denies dyspnea Resp Denies chest congestion, Denies cough, Denies dyspnea and Denies wheezing GI Denies abdominal pain, Denies change in bowel habits and Denies heartburn Denies dysuria, Denies urinary frequency and Denies urinary urgency Musc Reports no additional complaints Skin/Breast Denies lesions and Denies rash Neuro Denies dizziness, Denies headache(s) and Denies weakness Endo Denies fatigue and Denies palpitations Kodak/Lymph Denies easy bruising Aller/Immun Denies wheezing Physical exam (Primary Care) Vital Signs: Last Vital Signs Temp 98.3 F 08/01/24 11:13 Pulse 56 08/01/24 11:13 Resp 15 08/01/24 11:13 BP 142/98 H 08/01/24 11:13 Pulse Ox 99 08/01/24 11:13 Oxygen Delivery Method Room Air 08/01/24 11:13 BMI result Body Mass Index 22.3 Tobacco/Smoking Status: Tobacco use Status Tobacco use date assessed 08/01/24 08/01/24 11:01 Patient Tobacco Use Status Never used Tobacco 08/01/24 11:01 e-Cigarette/Vaping Use Never Used 08/01/24 11:01 PHQ-9: PHQ-9 Score PHQ-9: Total score 3 08/01/24 11:27 Depression Screening Interpretation: Negative Thrive Assessment: Date of Thrive Assessment Date Thrive assessed 08/01/24 08/01/24 11:01 Currently or been in a relationship where the following occur: No concerns reported Const Other: Alert oriented x3, no acute distress ambulatory normal gait Orientation/consciousness: patient oriented x3 HENMT Head: Yes normocephalic Face and sinus: Yes face symmetric Mouth: Normal oral and palatal mucosa present, oropharynx normal and moist mucous membranes Eyes General: appearance normal, both eyes and all related structures Neck Other: Supple, no lymphadenopathy, thyroid gland nonpalpable Chest Chest palpation & inspection: normal inspection of the chest Resp Effort & Inspection: normal respiratory effort and able to speak in complete sentences Auscultation: clear to auscultation bilaterally Cardio Other: S1-S2 present regular rate and rhythm GI Inspection: Yes normal to inspection Palpation (GI): Soft to palpation, nontender, no guarding and no masses Back/Spine/Pelvis Back: No back tenderness Neuro General: patient oriented x3, gait normal, moves all extremities, no focal motor deficits and CN's II-XI intact bilaterally Gait exam (Neuro): Normal gait present Extrem General: Yes normal to inspection, Yes full ROM, Yes no joint enlargement, Yes no pedal edema and Yes normal gait Right upper extremity: normal to inspection and full ROM Psych Appearance: grossly normal and well kempt Mental Status: mental status grossly normal Speech and movement: Normal speech and movement present Affect: normal affect Results Reviewed Results Reviewed: Name: Jani Haley Age/Sex: 64/M : 1960 Unit#: [id number] Attend Dr: Solange Staton MD Re06/11/24 Status: DEP REF Location: [facility] Disch: SPEC : [id number] MARY: 06/11/24 STATUS: COMP REQ : [id number] RECD: 06/11/[address]: Solange Staton MD COMP: 06/11/24 ENTERED: 06/11/[address]: ORDERED: Met Prof Fast, AST, ALT, Lipid Panel Test Result Flag Reference Sodium 143 135-145 mmol/L Potassium 3.8 3.3-5.1 mmol/L CL 107 96-108 mmol/L CO2 27 22-29 mmol/L Gap 13 12-20 BUN 9 9-16 mg/dL Creat 1.04 0.5-1.4 mg/dL eGFR > 60 Chronic Kidney Disease: Estimated GFR < 60 mL/min/1.73m2 Severe Kidney Disease: Estimated GFR < 15 mL/min/1.73m2 FBS 86 60-99 mg/dL CA 9.7 8.4-10.2 mg/dL AST (GOT) 17 5-37 U/L ALT (GPT) 9 0-40 U/L Triglyceride 66 <150 mg/dL Desirable Triglyceride: less than 150 mg/dL Borderline High Triglyceride 150-199 mg/dL High Triglyceride: 200-499 mg/dL Very High Triglyceride: greater than or equal to 5OO mg/dL Cholesterol 205 H <200 mg/dL Desirable Cholesterol: less than 200 mg/dL Borderline High Cholesterol: 200-239 mg/dL High Cholesterol: greater than 239 mg/dL LDL Calculated 140 H <100 mg/dL Desirable LDL: less than 100 mg/dL Near Optimal/Above Optimal LDL: 110-129 mg/dL Borderline High LDL: 130-159 mg/dL High LDL: 160-189 mg/dL Very High LDL: greater than or equal to 190 mg/dL HDL 52 >40 mg/dL Desirable HDL: greater than 40 mg/dL Note: This HDL assay may give artificially low results in patients with liver disease. Coding Level of Care Code Est Pt Prev Care 40-64y(98555) Diagnoses Essential hypertension I10 Dyslipidemia E78.5 Advanced directives, counseling/discussion Z71.89 Annual visit for general adult medical examination with abnormal findings Z00.01 Glaucoma, unspecified glaucoma type, unspecified laterality H40.9 Glaucoma type: unspecified Laterality: unspecified laterality Additional Codes PHQ-9 - 20091 - PHQ-9 Billing: Yes ([id number]) DONITA-7 Assessment Billing - DONITA-7 Assessment Tool: DONITA-7 Assessment 93022 ([id number]) Assessment & Plan Assessment & Plan (1) Essential hypertension: Code(s): I10 - Essential (primary) hypertension Category: Medical Plan: Blood pressure still elevated, I 30/80, continue amlodipine 10 mg daily and added losartan 50 mg 1 tablet in the morning. Reinforced importance of following a low-salt diet and managing stress levels, will have him see nurse navigator for dietary guidance and check blood pressure (2) Dyslipidemia: Code(s): E78.5 - Hyperlipidemia, unspecified Category: Medical Plan: Fasting lipid panel ordered today. Reinforced importance of following a low cholesterol diet and getting regular exercise. (3) Advanced directives, counseling/discussion: Code(s): Z71.89 - Other specified counseling Plan: Initiated the conversation about Advanced Directives. Advanced Directives help patients prepare for current and future decisions about their medical treatment and place of care. Discussed with patient that it is a process where a patients current condition and prognosis are reviewed, their wishes for information regarding their illness are elicited, and likely medical dilemmas are presented and options discussed. Healthcare proxy form completed today. The form can be amended as needed, reviewed yearly and make changes as needed (4) Annual visit for general adult medical examination with abnormal findings: Code(s): Z00.01 - Encounter for general adult medical examination with abnormal findings Plan: Will check appropriate labs. Recommended dental visit every 6 months and regular eye exams, at least every 2 years, goes to [facility]. Take adequate calcium in diet and vitamin-D 3 at 2000 IU per cap once a day, in addition to weight-bearing exercises to help maintain good muscle tone and weight control. Instructed to do self-testicular exam check for any mass. Up-to-date with his colonoscopy, done in [address] Gupta (5) Glaucoma: Comment: sees Dr Gilbert at [facility] in [place] Code(s): H40.9 - Unspecified glaucoma Category: Medical Qualifiers: Glaucoma type: unspecified Laterality: unspecified laterality Qualified Code(s): H40.9 - Unspecified glaucoma Plan: Followed by [facility] Orders: Orders Basic Metabolic Panel Fasting 11/02/24 E78.5 - Hyperlipidemia, unspecified, I10 - Essential (primary) hypertension Aspartate Amino Transferase 11/02/24 E78.5 - Hyperlipidemia, unspecified, I10 - Essential (primary) hypertension Lipid Panel 11/02/24 E78.5 - Hyperlipidemia, unspecified, I10 - Essential (primary) hypertension Alanine Aminotransferase 11/02/24 E78.5 - Hyperlipidemia, unspecified, I10 - Essential (primary) hypertension Medications: New losartan 50 mg PO DAILY 90 tabs 0RF I10 - Essential (primary) hypertension
[2024-08-01 11:13] VITALS: BP 142/98; PULSE 56; RESP 15; TEMP 36.8; O2SAT 99; BMI 22.3
--- OUTSIDE RECORDS SUMMARY | 2024-08-01 11:45 | XMS_ITS | Encounter Summary ---
Author Organization [facility] Address [address] [place] [address] Care Team Providers Care Geospatial Program Management Officer Name Role Phone Solange Staton MD Primary Care Provider [phone]- [phone] Encounter Details Date Type Department Care Team (Late st Contact Info) Description 08/02/2023 Scanned Document [address] [place] [phone] Solange Staton MD [address] [place] [address] Social History Tobacco Use Types Packs/Day Years Used Date Smoking Tobacco: Never Assessed Sex and Gender Information Value Date Recorded Sex Assigned at Male 08/01/2023 2:38 PM EDT Legal Sex Male 1:02 PM EDT Gender Identity Male 08/01/2023 2:38 PM EDT Sexual Orientation Heterosexual (straight) 07/31 2:38 PM EDT documented as of this encounter Plan of Treatment Not on file documented as of this encounter Visit Diagnoses Not on filedocumented in this encounter Care Teams Geospatial Program Management Officer Relationship Specialty Start Date End Date Solange Staton MD [address] [place] [address] PCP - General Internal Medicine 08/01/23 documented as of this encounter
--- OUTSIDE RECORDS SUMMARY | 2024-08-01 11:45 | XMS_ITS | Encounter Summary ---
Author Organization [facility] Address [address] [place] [address] Care Team Providers Care Sports Broadcasting Internship Name Role Phone Solange Staton MD Primary Care Provider +1- [phone] Encounter Details Date Type Department Care Team (Late st Contact Info) Description 08/02/2023 Scanned Document [address] [place] [phone] Solange Staton MD [address] [place] [address] Social History Tobacco Use Types Packs/Day Years [...] on filedocumented in this encounter Care Teams Sports Broadcasting Internship Relationship Specialty Start Date End Date Solange Staton MD [address] [place] [address] PCP - General Internal Medicine 08/01/23 documented as of this encounter
--- OUTSIDE RECORDS SUMMARY | 2024-08-01 11:45 | XMS_ITS | Encounter Summary ---
Author Organization [facility] Address [address] [place] [address] Care Team Providers Care Rubber Compounder Mixer Name Role Phone Solange Staton MD Primary Care Provider +1- [phone] Encounter Details Date Type Department Care Team (Late st Contact Info) Description 08/02/2023 Scanned Document [address] [place] [phone] Solange Staton MD [address] [place] [address] Social History Tobacco Use Types Packs/Day Years [...] on filedocumented in this encounter Care Teams Rubber Compounder Mixer Relationship Specialty Start Date End Date Solange Staton MD [address] [place] [address] PCP - General Internal Medicine 08/01/23 documented as of this encounter
--- OUTSIDE RECORDS SUMMARY | 2024-08-01 11:45 | XMS_ITS | Encounter Summary ---
Author Organization [facility] Address [address] [place] [address] Care Team Providers Care Singing Messenger Name Role Phone Solange Staton MD Primary Care Provider +1- [phone] Encounter Details Date Type Department Care Team (Late st Contact Info) Description 08/02/2023 Scanned Document [facility] [address] [facility] [address] [place] [phone] ProviderSoraya MD [address] [place] [address] Social History Tobacco Use Types Packs/Day Years [...] on filedocumented in this encounter Care Teams Singing Messenger Relationship Specialty Start Date End Date Solange Staton MD [address] [place], [place] [address] [address] PCP - General Internal Medicine 08/01/23 documented as of this encounter
--- OUTSIDE RECORDS SUMMARY | 2024-08-01 11:45 | XMS_ITS | Encounter Summary ---
Author Organization [facility] Address [address] [place] [address] Care Team Providers Care Parking Worker Name Role Phone Solange Staton MD Primary Care Provider +1- [phone] Reason for Visit * Reason Comments Appointment Referral Encounter Details Date Type Department Care Team (Late st Contact Info) Description 08/01/[address] [phone] Provider, Generic Appointment; Referral Social [...] on filedocumented in this encounter Care Teams Parking Worker Relationship Specialty Start Date End Date Solange Staton MD [address] [facility] [place] [address] PCP - General Internal Medicine 08/01/23 documented as of this encounter
--- OUTSIDE RECORDS SUMMARY | 2024-08-01 11:45 | XMS_ITS | Clinical Summary ---
Author Organization [facility] Address [address] [place] [address] Care Team Providers Care Inspector Automatic Typewriter Name Role Phone Solange Staton MD Primary [...] on patient's age to complete this topic Insurance [facility] [employer] Care Teams Inspector Automatic Typewriter Relationship Specialty Start Date End Date Solange Staton MD [address] [place] [address] PCP - General Internal Medicine 08/01/23
--- OUTSIDE RECORDS SUMMARY | 2024-08-01 11:45 | XMS_ITS | Clinical Summary ---
Author Organization [facility] Address [address] [place] [address] Care Team Providers Care Interpretive Program Coordinator Name Role Phone Steve Marcelo MD Primary Care Provider Encounters Date Type Department Care Team Description 06/15/2024 Hospital/[place] [address] Rafaela Crawford NP from Last 3 Months Immunizations Name Administration Dates Next Due Influenza,injectable,quad,Prsrv [...] complete this topic Zoster (Zostavax) Discontinued Insurance [place] [address] PLAN-OUT OF NETWORK Care Teams Interpretive Program Coordinator Relationship Specialty Start Date End Date Steve Marcelo MD [address] [phone] PCP - General Internal Medicine 10/13/23 DR STEVE MARCELO 1960 [facility] [address] Primary Care Provider 09/09/23
--- OUTSIDE RECORDS SUMMARY | 2024-08-01 11:45 | XMS_ITS | Encounter Summary ---
Author Organization [facility] Address [address] [place] [address] Care Team Providers Care Galley Boy Name Role Phone Solange Staton MD Primary Care Provider +1- [phone] Encounter Details Date Type Department Care Team (Late st Contact Info) Description 08/02/2023 Scanned Document [address] [place] [phone] Solange Staton MD [address] [place] [address] Social History Tobacco Use Types Packs/Day Years [...] on filedocumented in this encounter Care Teams Galley Boy Relationship Specialty Start Date End Date Solange Staton MD [address] [place] [address] PCP - General Internal Medicine 08/01/23 documented as of this encounter
--- OUTSIDE RECORDS SUMMARY | 2024-08-01 11:45 | XMS_ITS | Encounter Summary ---
Author Organization [facility] Address [address] [place] [address] Care Team Providers Care Continuous Improvement Director Name Role Phone Solange Staton MD Primary Care Provider +1- [phone] Encounter Details Date Type Department Care Team (Late st Contact Info) Description 08/02/2023 Scanned Document [facility] 10 [facility] [address] [place] [phone] ProviderSoraya MD [address] [place] [address] Social History Tobacco Use Types Packs/Day Years [...] on filedocumented in this encounter Care Teams Continuous Improvement Director Relationship Specialty Start Date End Date Solange Staton MD [address] [place], [place] [address] [address] PCP - General Internal Medicine 08/01/23 documented as of this encounter
--- OUTSIDE RECORDS SUMMARY | 2024-08-01 11:45 | XMS_ITS ---
Author Name [facility] Organization Unknown Care Team Organization Name Specialty Phone Email Start Date End Da [facility] STEVE MARCELO Primary Care 08/01/2023
== END 2024-08-01 11:42 | disposition home or self-care (01) ==
PROVIDERS: PCP Internal Medicine; Visit Provider Internal Medicine
DX: I10 Essential (primary) hypertension (principal); E78.5 Hyperlipidemia, unspecified; Z71.89 Other specified counseling; Z00.01 Encounter for general adult medical examination with abnormal findings; H40.9 Unspecified glaucoma

== ENCOUNTER → 2024-08-01 10:22 | Outpatient (BNVA) | payer OTHER, SELFPAY | PROVIDERS: PCP Internal Medicine; Visit Provider Internal Medicine | DX: Z00.01 Encounter for general adult medical examination with abnormal findings (principal); I10 Essential (primary) hypertension; E78.5 Hyperlipidemia, unspecified; H40.9 Unspecified glaucoma; Z71.89 Other specified counseling; Z79.899 Other long term (current) drug therapy | CPT/HCPCS: 96127; 99396 ==

== ENCOUNTER 2024-09-06 08:58 | Day surgery (SDC) | payer OTHER, SELFPAY ==
[2024-09-04 14:45] VITALS: BMI 22.3
--- NOTE | 2024-09-05 11:41 | HO.ANESPROP2 ---
Documented by User: Zari Soto NP 09/05/24 11:41 HPI - Anesthesia Eval Consult details Narrative: 64yo M for Colonoscopy PMFSH Active Problems Active Problems: All Active Problems Prostate cancer (Acute) Hematochezia (Acute) Glaucoma (Acute) Essential hypertension (Acute) History of hemorrhoids (Acute) Dyslipidemia (Acute) Past Medical History Medical History Prostate cancer Hematochezia Glaucoma Essential hypertension History of hemorrhoids Dyslipidemia Vitamin D deficiency Anemia Family History Family History Father No problems noted. Mother Unknown family medical history Brother No problems noted. Sister No problems noted. Sister No problems noted. Son No problems noted. Son No problems noted. Daughter No problems noted. Daughter No problems noted. Daughter No problems noted. Surgical History Surgical History Hx of prostate biopsy History of colonoscopy History of hemorrhoidectomy Social History Social History Housing: House Alcohol intake: current Alcohol intake frequency: does not drink Patient Tobacco Use Status: Never used Tobacco e-Cigarette/Vaping Use: Never Used Second Hand Smoke Exposure: No Use of substances other than those prescribed or required for medical reasons: No Have you been hit, kicked, punched, or otherwise hurt by someone within the past year? If so, by whom?: No Are you DNR?: No Advance Directives: No Advance Directives Information Provided: Yes Advance Directives on File: No Poor oral hygiene: No service: No Current occupational status: employed Cognitive needs: No Hearing needs: No Vision needs: No Meds Allergies Allergy/AdvReac Type Severity Reaction Status Date / Time No Known Allergies Allergy Verified 08/01/24 11:25 [No Known Allergies*] Home Medications ?Medication ?Instructions ?Recorded ?Confirmed ?Last Taken ?Type timolol maleate 0.5 % eye drops 1 drp ophthalmic (eye) BID 08/12/20 09/04/24 Unknown History latanoprost 0.005 % eye drops 1 drp ophthalmic (eye) DAILY 09/15/20 09/04/24 Unknown History Exam Height,Weight and Vital Signs: Height 5 ft 5 in Weight 60.781 kg Assessment and Plan Assessment Anesthesia Assessment: Chart Reviewed Documented by User: Gissel Holm MD 09/06/24 10:02 PMF Past Medical History Medical History Prostate cancer Hematochezia Glaucoma Essential hypertension History of hemorrhoids Dyslipidemia Vitamin D deficiency Anemia Family History Family History Father No problems noted. Mother Unknown family medical history Brother No problems noted. Sister No problems noted. Sister No problems noted. Son No problems noted. Son No problems noted. Daughter No problems noted. Daughter No problems noted. Daughter No problems noted. Surgical History Surgical History Hx of prostate biopsy History of colonoscopy History of hemorrhoidectomy History of Problems with Anesthesia: No Social History Social History Housing: House Alcohol intake: current Alcohol intake frequency: does not drink Patient Tobacco Use Status: Never used Tobacco e-Cigarette/Vaping Use: Never Used Second Hand Smoke Exposure: No Use of substances other than those prescribed or required for medical reasons: No Have you been hit, kicked, punched, or otherwise hurt by someone within the past year? If so, by whom?: No Are you DNR?: No Advance Directives: No Advance Directives Information Provided: Yes Advance Directives on File: No Poor oral hygiene: No service: No Current occupational status: employed Cognitive needs: No Hearing needs: No Vision needs: No Meds Allergies Allergy/AdvReac Type Severity Reaction Status Date / Time No Known Allergies Allergy Verified 08/01/24 11:25 [No Known Allergies*] Home Medications ?Medication ?Instructions ?Recorded ?Confirmed ?Last Taken ?Type timolol maleate 0.5 % eye drops 1 drp ophthalmic (eye) BID 08/12/20 09/04/24 Unknown History latanoprost 0.005 % eye drops 1 drp ophthalmic (eye) DAILY 09/15/20 09/04/24 Unknown History Exam Airway Mallampati Class: II TM Dist: >3cm Neck ROM: Full Loose/Missing/Broken Teeth: No Heart: RRR Lungs: CTA Assessment and Plan Assessment Anesthesia Assessment: Anesthesia Plan Discussed Final Anesthetic Review History of Problems with Anesthesia: No NPO: Yes ASA Class: II Final Preanesthetic Review: Meds/Allgs Chart Reviewed, Consent Obtained/Reviewed and Anes Risks/Benef Reviewed Patient Risk: Low Procedure Risk: Intermediate Anesthetic Plan Anesthetic Plan: MAC: Disposition: Standard PACU
[2024-09-06 09:40] VITALS: BP 121/78; PULSE 72; RESP 16; TEMP 36.6; O2SAT 99
[2024-09-06] MEDS: Lactated Ringers 1,000 ML 100 ML IVCONT (09:40)
--- NOTE | 2024-09-06 10:01 | MHC.SHP ---
Pre-Procedural Eval Section A - 24 Hr Update-Section A only Date of Service: 09/06/24 Section B - Complete if H&P > 30 days Chief Complaint: Malignant neoplasm of prostate Relevant Family History (Specify if Yes): No Relevant Social History: None Present Medications: see Short Stay Collaborative assessment Medical History: Significant History (Prostate cancer Hematochezia Glaucoma Essential hypertension History of hemorrhoids Dyslipidemia Vitamin D deficiency Anemia) History of Previous Operations: Relevant previous surgery/procedure and date(s) (Hx of prostate biopsy History of colonoscopy History of hemorrhoidectomy) Allergies: Allergies Allergy/AdvReac Type Severity Reaction Status Date / Time No Known Allergies Allergy Verified 08/01/24 11:25 [No Known Allergies*] Review of Systems Sugical H&P ROS: Negative: Constitution, Cardiovascular, Respiratory, Neurological, Psychiatric, Hem-Onc, Allergic/Immunologic, Gastrointestinal, Genitourinary, Musculoskeletal, Integumentary, Endocrine and Eyes/Ears/Nose/Throat Exam Surgical H&P Exam: Normal: HEENT, Normal: Heart, Normal: Lungs, Normal: Extremities, Normal: Abdomen, Normal: Skin and Normal: Neurological Plan Diagnosis/Plan: Unchanged I have reviewed the history and physical and performed a pertinent physical examination on my patient. No changes have occurred unless specified. colonsocopy for rectal bleeding and evaluation Time Spent With Patient Time: Total time managing care of this patient today ____ minutes.
--- NOTE | 2024-09-06 11:01 | HO.OPN-COLON ---
Colonoscopy Operative Note Operative Note Date of Service: 09/06/24 Narrative: Operative Information Procedure Description: Colonoscopy Indication: rectal bleeding Anesthesia: MAC COLONOSCOPY Instrument: Olympus variable stiffness pediatric scope 190L Colonoscopy Monitoring: Vital signs and clinical assessment, continuous EKG monitoring, Pulse oximetry, Carbon Dioxide monitoring and blood pressure monitoring were done throughout the procedure. Colon withdrawal time was 10 minutes. Procedure: The patient was placed in the left lateral decubitis position and pre-procedure medications were administered. After a digital rectal examination of the ano-rectum, the video colonoscope was inserted into the rectum and advanced through the colon to the cecum/TI. The colonoscope was slowly withdrawn in a retrograde panoramic fashion and the colon mucosa was carefully examined including a retroflexed view of the rectum. Findings and interventions are described below. Procedure Difficulty: easy Findings: Terminal Ileum-normal Cecum:normal Ascending Colon: normal Transverse Colon -normal Descending Colon:normal Sigmoid Colon: normal Rectum: Retroflexion with medium sized inflammed internal hemorrhoids seen, grade I Anorectum - normal Intervention: none Colon preparation: [place] Bowel Preparation Scale Right colon; 2 Transverse colon: 2 Left colon; 2 (0 = Unprepared colon segment with mucosa not seen due to solid stool that cannot be cleared. 1 = Portion of mucosa of the colon segment seen, but other areas of the colon segment not well seen due to staining, residual stool and/or opaque liquid. 2 = Minor amount of residual staining, small fragments of stool and/or opaque liquid, but mucosa of colon segment seen well. 3 = Entire mucosa of colon segment seen well with no residual staining, small fragments of stool or opaque liquid) Impression and Post Procedure Diagnosis: internal hemorrhoids Plan: High fiber diet leaflet Avoid straining at stool, epsom salts and sitz bath, anusol supps or cream Repeat Colonoscopy in 10 years or earlier if clinically indicated if recurrent bleeding then refer for surgical assessment or Ir embolization Above findings were reviewed with the patient and relevant handouts were provided if indicated.
[2024-09-06 11:03] VITALS: BP 115/78; PULSE 75; RESP 12; TEMP 36.1; O2SAT 97
[2024-09-06 11:18] VITALS: BP 102/68; PULSE 66; RESP 14; O2SAT 99
[2024-09-06 11:41] VITALS: BP 108/70; PULSE 80; RESP 17; TEMP 36.1; O2SAT 100
== END 2024-09-06 12:35 | disposition home or self-care (01) ==
PROVIDERS: PCP Internal Medicine; Visit Provider Internal Medicine Gastroenterology
PROC: 0DJD8ZZ Inspection of Lower Intestinal Tract, Via Natural or Artificial Opening Endoscopic (ICD-10-PCS; CPT 45378; principal; 2024-09-06 12:40)
DX: K62.5 Hemorrhage of anus and rectum (principal); C61 Malignant neoplasm of prostate; K64.0 First degree hemorrhoids; I10 Essential (primary) hypertension; D64.9 Anemia, unspecified; E78.5 Hyperlipidemia, unspecified; E55.9 Vitamin D deficiency, unspecified; H40.9 Unspecified glaucoma; Z79.899 Other long term (current) drug therapy; Z98.890 Other specified postprocedural states
CPT/HCPCS: 45378; J2003; J2704

== ENCOUNTER → 2024-09-06 08:58 | Outpatient (BNV) | payer OTHER, SELFPAY | PROVIDERS: PCP Internal Medicine; Visit Provider Internal Medicine Gastroenterology | DX: K62.5 Hemorrhage of anus and rectum (principal); K64.0 First degree hemorrhoids | CPT/HCPCS: 45378 ==